=== PATIENT | female | born 1965 | race Caucasian/White ===

== ENCOUNTER 2020-09-26 09:45 | Outpatient (RCR) | payer OTHER, SELFPAY ==
[2020-08-28 13:12] VITALS: BMI 22.3
--- NOTE | 2020-08-28 14:10 | PC.ADMIT ---
Patient is a 53 year old female who started the PHP program today as a step-down from inpatient level of care. Patient was hospitalized d/t increased depressive symptoms and had a plan to overdose on her prescription [place]. Patient reports stressors including relationship issues with boyfriend who she lives with. Reports she gave up her apartment and is unsure if she could afford a place of her own if needed. Patient also lost her therapist. Yanely is here for more support and found the program helpful for continued stabilization. Patient is alert and oriented x4 . Somewhat talkative. Reports erratic sleep sleeping anywhere from 2-8-12 hrs a night. Uses and additional Klonopin tab about 2 x a month to help with sleep. Stated her provider is aware. Reports a decrease in appetite with a 3 lb weight loss recently. Denied SI or thoughts to harm herself. Gave verbal permission to email her a copy of her safety plan. Patient does have the crisis number. Stated if she felt unsafe she can call her ex-boyfriend and best friend as they know her well and are supportive.
--- NOTE | 2020-08-28 14:29 | PC.NURSE ---
I spoke with the client about finding an individual therapist. She states that her psychiatrist may have one in mind. I told her that she could also check on psycology today.
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
--- NOTE | 2020-08-30 15:26 | PC.NURSE ---
Client called out with a toothache and is planning to go to the dentist today.
--- NOTE | 2020-08-31 08:37 | PC.NURSE ---
case opened in treatment team
--- NOTE | 2020-09-04 15:37 | PC.NURSE ---
I attempted to call client to check in and to review treatment.She di not answer her phone and her mailbox is full.
--- NOTE | 2020-09-06 15:50 | PM.EVENT ---
Event Note Date of Service: 09/06/20 Event Note: Scheduled call to review meds with pt today at 12pm. Call to pt. Voice mail is full-unable to leave a message, .
--- NOTE | 2020-09-11 11:36 | PC.NURSE ---
Per clinician report, pt reported in first group being upset regarding the 9 am meeting and the repetition of the announcements. Attempt to call pt to discuss her concerns. LM for pt to call back.
--- NOTE | 2020-09-11 12:23 | PC.NURSE ---
Pt returned phone call 30 minutes later. She reported her frustration with the expectation that all patients are present at 0930 for the first psychotherapy group. She also reported the response this engineering technical writer gave her this morning was abrupt and short . This engineering technical writer apologized for the unintentional short response to her during the 0900 meeting but unfortunately, attendance in the 0930 psychotherapy group has always been an expectation. Pt returned to group.
--- NOTE | 2020-09-11 13:41 | PC.NURSE ---
Pt was not in the third group. She was present at first (as the group got started), and said she was leaving to take some space after a phone call from staff. She did not return to the third group.
--- NOTE | 2020-09-11 13:58 | PC.NURSE ---
TW reached out to pt after it was reported that pt did not attend the last 2 groups of the day. Pt reported that she was in a bad space and angry and she didn't feel that being in groups the rest of the day would be beneficial for the other patients. Pt reported that she had left a message for her clinician. Pt stated that she was in communication with her psychiatrist at this time. Pt reported that she would be in group tomorrow, 09/12/20
--- NOTE | 2020-09-11 15:28 | PM.EVENT ---
Event Note Date of Service: 09/11/20 Event Note: Pt unavailable at scheduled time for medicine review. Message left for pt.
--- NOTE | 2020-09-19 15:16 | P.PNPSP_ITS ---
Subjective Subjective Date of Service: 09/19/20 Reason For Visit: Bipolar Diagnostics Vital Signs (24Hr): Body Mass Index 22.3 Assessment & Plan Certification I certify that partial hospital treatment is medically necessary due to the sym ptoms and problems resulting from the patient's mental illness and the failure to treat the patient at the partial hospital level of care would likely result in the patient requiring inpatient psychiatric care which could not be prevented at a less intensive level of care. Greater than 50% of the session was spent on counseling and/or coordination of care Discharge Plan Discharge Attending provider: Kirk Warren Medications: No Action clonazepam 1 mg Tablet 1 mg PO BID RF: 0 omeprazole 40 mg Capsule,Delayed Release(Dr/Ec) 40 mg PO DAILY RF: 0 levothyroxine 75 mcg Tablet 75 mcg PO DAILY RF: 0 ferrous sulfate 325 mg (65 mg iron) Tablet 325 mg PO DAILY RF: 0 dextroamphetamine-amphetamine 20 mg Tablet 20 mg PO DAILY RF: 0 duloxetine 60 mg Capsule,Delayed Release(Dr/Ec) 60 mg PO DAILY RF: 0 diclofenac sodium 1 % Gel 2 g TOPICAL QID PRN (Reason: Pain) RF: 0 cholecalciferol (vitamin D3) 50 mcg (2,000 unit) Capsule 50 mcg PO DAILY RF: 0 lithium carbonate 300 mg Tablet Extended Release 600 mg PO BEDTIME RF: 0
--- NOTE | 2020-09-20 13:19 | HO.PHPPROGNO ---
Subjective Subjective Date of Service: 09/19/20 Reason For Visit: Bipolar Interim History: Susana reports insomnia for the past 2 nights. Last night she slept for 1-2 hours. Sleep deprivation precipitates headache-pt cannot use NSAIDS as she has a hx of aneurysm rupture at age 32. She uses fluids, electrolyte rich fluids and extra self-care. When sleep deprived, pt also experiences an increase in anxiety. She has discussed current sx with her prescriber via email and was referred to our service. By history, what has helped with insomnia was a temporary increase in Klonopin to 1 tab a.m. 2 tabs hs. Other agents have not been helpful, including Trazodone and Seroquel as the after effects are too difficult to manage. Medication Compliance: Yes Side effects from medications: No Attending Groups: Yes Review of Systems Constitutional: Reports headache(s) Reports headache(s) Reports headache(s) Psychiatric: Reports abnormal sleep pattern and Reports anxiety Mental Status Exam Mental Status Exam Patient Orientation: Person, Place, Time and Situation Level of Consciousness: Awake, Appropriate and Alert Patient Behavior: Appropriate Mood Description: Withdrawn, Depressed and Flat Affect Description: Withdrawn and Flat Patient Cognition Impaired: No Ability to Follow Directions: Excellent Speech Pattern: Clear, Appropriate and Spontaneous Speech Memory Description: Intact Hallucinations: None Delusions: Not Present Thought Process: Distracted (due to exhaustion) Thought Content: positive for Intact Depressive Symptoms: Insomnia, Diff. Making Decisions (due to sleep deprivation) and Difficulty Sleeping Judgement: Good Diagnostics Vital Signs (24Hr): Body Mass Index 22.3 Assessment & Plan Assessment & Plan (1) Insomnia: Status: Acute Code(s): G47.00 - Insomnia, unspecified Assessment and Plan: Temporary increase of Klonopin to tid to aid in insomnia mgt. Certification I certify that partial hospital treatment is medically necessary due to the symptoms and problems resulting from the patient's mental illness and the failure to treat the patient at the partial hospital level of care would likely result in the patient requiring inpatient psychiatric care which could not be prevented at a less intensive level of care. Greater than 50% of the session was spent on counseling and/or coordination of care Discharge Plan Discharge Attending provider: Kirk Warren Medications: Discontinued dextroamphetamine-amphetamine 20 mg Tablet 20 mg PO DAILY RF: 0 No Action clonazepam 1 mg Tablet 1 mg PO BID RF: 0 omeprazole 40 mg Capsule,Delayed Release(Dr/Ec) 40 mg PO DAILY RF: 0 levothyroxine 75 mcg Tablet 75 mcg PO DAILY RF: 0 ferrous sulfate 325 mg (65 mg iron) Tablet 325 mg PO DAILY RF: 0 duloxetine 60 mg Capsule,Delayed Release(Dr/Ec) 60 mg PO DAILY RF: 0 diclofenac sodium 1 % Gel 2 g TOPICAL QID PRN (Reason: Pain) RF: 0 cholecalciferol (vitamin D3) 50 mcg (2,000 unit) Capsule 50 mcg PO DAILY RF: 0 lithium carbonate 300 mg Tablet Extended Release 600 mg PO BEDTIME RF: 0
--- NOTE | 2020-09-26 12:34 | P.PNPSP_ITS ---
Subjective Subjective Date of Service: 09/26/20 Reason For Visit: Bipolar Interim History: Susana plans discharge today. She reports insomnia is resolved with recent Klonopin increase to tid. She plans to meet with Dr. Hwang in October and will need refills of Adderall. In hospital, she tapered per hospital policy and has been retitrating, currently at 15 mg daily. Discussed increasing to 15 mg bid which we will trial. By history dosage is 30 mg a.m. 20 mg p.m. which both last 5-6 hours. Pt was asked to contact technical publications writer with problems/SE/medication issues if experienced prior to her med appt. Reviewed her experiences with Adderall XR and adverse effects of longer acting med on sleep. She also finds IR augments her antidepressant for improved efficacy. Pt has signed up for video group sessions with Dr. Herson Mike which will begin weekly. She is excited to begin these group meetings. Reports she has found PHP to be helpful and feels a sense of security that the program is available for her to attend. Medication Compliance: Yes Side effects from medications: No Attending Groups: Yes Review of Systems Psychiatric: Reports no additional psychiatric complaints and Reports as per [facility] Mental Status Exam Mental Status Exam Patient Orientation: Person, Place and Time Level of Consciousness: Awake, Appropriate and Alert Patient Behavior: Appropriate Mood Description: Calm and Appropriate Affect Description: Calm and Appropriate Patient Cognition Impaired: No Ability to Follow Directions: Excellent Speech Pattern: Clear, Appropriate, Spontaneous Speech and Coherent Memory Description: Intact Hallucinations: None Delusions: Not Present Thought Process: Intact Thought Content: positive for Intact Judgement: Good Diagnostics Vital Signs (24Hr): Body Mass Index 22.3 Assessment & Plan Assessment & Plan (1) Bipolar disorder: Status: Acute Code(s): F31.9 - Bipolar disorder, unspecified Assessment and Plan: Continue Klonopin at 1 mg tid-pt reports refills are not needed today Continue [place], Cymbalta Pt to call with questions, SE, medication issues. Reports labs are on a regular schedule. (2) ADHD: Status: Acute Code(s): F90.9 - Attention-deficit hyperactivity disorder, unspecified type Assessment and Plan: Titrate Adderall to 15 mg bid Certification I certify that partial hospital treatment is medically necessary due to the symptoms and problems resulting from the patient's mental illness and the failure to treat the patient at the partial hospital level of care would likely result in the patient requiring inpatient psychiatric care which could not be prevented at a less intensive level of care. Greater than 50% of the session was spent on counseling and/or coordination of care Discharge Plan Discharge Attending provider: Kirk Warren Medications: New dextroamphetamine-amphetamine [Adderall] 15 mg tablet 15 mg PO BID Qty: 60 RF: 0 Discontinued dextroamphetamine-amphetamine 20 mg Tablet 20 mg PO DAILY RF: 0 No Action clonazepam 1 mg Tablet 1 mg PO BID RF: 0 omeprazole 40 mg Capsule,Delayed Release(Dr/Ec) 40 mg PO DAILY RF: 0 levothyroxine 75 mcg Tablet 75 mcg PO DAILY RF: 0 ferrous sulfate 325 mg (65 mg iron) Tablet 325 mg PO DAILY RF: 0 duloxetine 60 mg Capsule,Delayed Release(Dr/Ec) 60 mg PO DAILY RF: 0 diclofenac sodium 1 % Gel 2 g TOPICAL QID PRN (Reason: Pain) RF: 0 cholecalciferol (vitamin D3) 50 mcg (2,000 unit) Capsule 50 mcg PO DAILY RF: 0 lithium carbonate 300 mg Tablet Extended Release 600 mg PO BEDTIME RF: 0 Telehealth Telehealth Location of provider rendering services: practice address Location of patient: address on file Patient Identification confirmed using: Name, : Yes Telehealth method: voice only Patient verbally consented to treatment: Yes Patient verbally consented to billing insurance company: Yes Patient informed of any privacy concerns related to visit: Yes Time spent with patient (mins): 30
== END 2020-09-26 23:55 | disposition home or self-care (01) ==
LOC: HO.PHPA 09:45
PROVIDERS: Visit Provider Psychiatry & Neurology Psychiatry
DX: F31.9 Bipolar disorder, unspecified (principal); F90.9 Attention-deficit hyperactivity disorder, unspecified type; G47.00 Insomnia, unspecified; F43.10 Post-traumatic stress disorder, unspecified; Z79.899 Other long term (current) drug therapy
CPT/HCPCS: 90792; 90853; 99213

== ENCOUNTER → 2020-10-24 08:30 | Outpatient (BNVA) | payer OTHER, SELFPAY | PROVIDERS: PCP Family Medicine; Visit Provider Anesthesiology | DX: M53.3 Sacrococcygeal disorders, not elsewhere classified (principal); M46.1 Sacroiliitis, not elsewhere classified; M51.36 Other intervertebral disc degeneration, lumbar region; M47.816 Spondylosis without myelopathy or radiculopathy, lumbar region; G89.4 Chronic pain syndrome | CPT/HCPCS: 99202 ==

== ENCOUNTER 2020-11-20 07:59 | Outpatient (REF) | payer OTHER, SELFPAY ==
--- NOTE | 2020-11-20 08:05 | FL_ITS ---
EXAMINATION: XR FLUOROSCOPY WITH IMAGES CLINICAL INFORMATION: Sacroiliitis COMPARISON: None. TECHNIQUE: Fluoroscopy performed by Chelsea Colbert NP. Fluoroscopy time: 0.2 minutes Cumulative dose 5.7 mgy Images: 1 FINDINGS: Single image demonstrates needle placement and injection of contrast at the inferior left sacroiliac joint. FL/FL guidance in treatment room IMPRESSION: Fluoroscopy guidance for sacroiliac joint injection.
== END 2020-11-20 08:00 | disposition home or self-care (01) ==
LOC: HO.RADIR 07:59
PROVIDERS: Visit Provider Anesthesiology
DX: M46.1 Sacroiliitis, not elsewhere classified (principal); M53.3 Sacrococcygeal disorders, not elsewhere classified; M51.36 Other intervertebral disc degeneration, lumbar region; M47.816 Spondylosis without myelopathy or radiculopathy, lumbar region; G89.4 Chronic pain syndrome; F17.210 Nicotine dependence, cigarettes, uncomplicated; Z88.5 Allergy status to narcotic agent; Z88.2 Allergy status to sulfonamides; Z88.8 Allergy status to other drugs, medicaments and biological substances
CPT/HCPCS: 27096; J3300; Q9967

== ENCOUNTER → 2020-12-10 14:35 | Outpatient (BNVA) | payer OTHER, MEDICARE, SELFPAY | PROVIDERS: PCP Family Medicine; Visit Provider Anesthesiology | DX: M46.1 Sacroiliitis, not elsewhere classified (principal); M53.3 Sacrococcygeal disorders, not elsewhere classified; M51.36 Other intervertebral disc degeneration, lumbar region; M47.816 Spondylosis without myelopathy or radiculopathy, lumbar region; G89.4 Chronic pain syndrome | CPT/HCPCS: 99212 ==

== ENCOUNTER → 2020-12-31 10:48 | Outpatient (BNVA) | payer OTHER, MEDICARE, SELFPAY | PROVIDERS: PCP Family Medicine; Visit Provider Anesthesiology | DX: M47.816 Spondylosis without myelopathy or radiculopathy, lumbar region (principal); M46.1 Sacroiliitis, not elsewhere classified; M51.36 Other intervertebral disc degeneration, lumbar region; M53.3 Sacrococcygeal disorders, not elsewhere classified; G89.4 Chronic pain syndrome; Z79.899 Other long term (current) drug therapy | CPT/HCPCS: Q3014 ==

== ENCOUNTER 2021-01-15 07:13 | Outpatient (REF) | payer OTHER, MEDICARE, SELFPAY ==
--- NOTE | ~2021-01-15 | FL_ITS ---
EXAMINATION: XR FLUOROSCOPY WITH IMAGES CLINICAL INFORMATION: Sacroiliitis. COMPARISON: None. TECHNIQUE: Fluoroscopy performed by Chelsea Colbert. Fluoroscopy time: 0.1 minutes DAP: 0.391 Gycm2 Images: 1 FINDINGS: There is a single image with needle in the left SI joint and contrast opacifying the inferior joint space. FL/FL guidance in treatment room IMPRESSION: Fluoroscopy was provided for guidance during left SI joint injection to Chelsea Colbert.
== END 2021-01-15 07:14 | disposition home or self-care (01) ==
LOC: HO.RADIR 07:13
PROVIDERS: Visit Provider Anesthesiology
DX: M46.1 Sacroiliitis, not elsewhere classified (principal); M53.3 Sacrococcygeal disorders, not elsewhere classified; M51.36 Other intervertebral disc degeneration, lumbar region; M47.816 Spondylosis without myelopathy or radiculopathy, lumbar region; G89.4 Chronic pain syndrome
CPT/HCPCS: 27096; J3300; Q9967

== ENCOUNTER → 2021-02-27 15:38 | Outpatient (BNVA) | payer OTHER, MEDICARE, SELFPAY | PROVIDERS: PCP Family Medicine; Visit Provider Anesthesiology | DX: M53.3 Sacrococcygeal disorders, not elsewhere classified (principal); M46.1 Sacroiliitis, not elsewhere classified; M51.36 Other intervertebral disc degeneration, lumbar region; M47.816 Spondylosis without myelopathy or radiculopathy, lumbar region; G89.4 Chronic pain syndrome | CPT/HCPCS: Q3014 ==

== ENCOUNTER 2021-04-05 09:05 | Day surgery (SDC) | payer OTHER, SELFPAY ==
[2021-04-01 11:11] VITALS: BMI 23.2
[2021-04-01 11:12] VITALS: BMI 23.2
--- NOTE | 2021-04-03 10:36 | P.CONAN_ITS ---
Documented by User: Charity Waleska 04/03/21 10:38 HPI - Anesthesia Eval Consult details Narrative: 55yo F for Right S.I. Joint Fusion PMFSH Active Problems Active Problems: All Active Problems (Updated 01/15/21 @ 16:24 by Carlos Boo MD) Sacroiliac joint dysfunction of left side (Acute) Chronic pain syndrome (Acute) Spondylosis without myelopathy or radiculopathy, lumbar region (Acute) Disc degeneration, lumbar (Acute) Sacroiliitis, not elsewhere classified (Acute) Sacroiliac joint dysfunction of right side (Acute) ADHD (Acute) Bipolar disorder (Acute) Insomnia (Acute) GERD (gastroesophageal reflux disease) (Acute) Past Medical History Medical History ADHD Anemia Bipolar disorder Chronic back pain Chronic pain syndrome Dermoid cyst Disc degeneration, lumbar GERD (gastroesophageal reflux disease) Hx of endometriosis Hypothyroidism Insomnia Osteoarthritis PUD (peptic ulcer disease) Sacroiliac joint dysfunction of left side Sacroiliac joint dysfunction of right side Sacroiliitis, not elsewhere classified Spondylosis without myelopathy or radiculopathy, lumbar region Subarachnoid bleed Surgical History Surgical History History of surgery Hx of section Social History Social History Household Members: Significant Other Patient Tobacco Use Status: Current everyday Tobacco user Tobacco use type: Cigarette Cigarette Packs Per Day: 1 Cigarettes Per Day: 20.0 Years Smoked: 39 Are you DNR?: No Advance Directives Information Provided: No Meds Allergies Allergy/AdvReac Type Severity Reaction Status Date / Time meperidine [From Demerol] Allergy Intermediate Itching Verified 04/05/21 09:43 NSAIDS (Non-Steroidal Allergy Intermediate GI UPSET/ Verified 04/05/21 09:43 Anti-Inflamma COFFEE [NSAIDS (NON-STEROIDAL GROUND ANTI-INFLAMMA] EMESIS Sulfa (Sulfonamide Allergy Intermediate SWELLING Verified 04/05/21 09:43 Antibiotics) OF FACE [SULFA (SULFONAMIDE HANDS, AND ANTIBIOTICS)] FEET Home Medications Medication Instructions Recorded Confirmed Last Taken Type cholecalciferol (vitamin D3) 50 mcg PO DAILY 08/28/20 04/01/21 08/28/20 10:30 History clonazepam 1 mg PO BID 08/28/20 04/01/21 08/28/20 10:30 History diclofenac sodium 2 g TOPICAL QID PRN 08/28/20 04/01/21 Unknown History duloxetine 60 mg PO DAILY 08/28/20 04/01/21 04/05/21 06:30 History ferrous sulfate 325 mg PO DAILY 08/28/20 04/01/21 08/27/20 22:30 History levothyroxine 75 mcg PO DAILY 08/28/20 04/01/21 04/05/21 06:30 History lithium carbonate 600 mg PO BEDTIME 08/28/20 04/01/21 Unknown History omeprazole 40 mg PO DAILY 08/28/20 04/01/21 08/28/20 10:30 History Exam Exam Date and Time: April 03, 2021 1036 Height,Weight and Vital Signs: Height 5 ft 3 in Weight 59.421 kg Assessment and Plan Assessment Anesthesia Assessment: Chart Reviewed Documented by User: Rita Ross 04/05/21 11:04 [facility] Past Medical History Medical History ADHD Anemia Bipolar disorder Chronic back pain Chronic pain syndrome Dermoid cyst Disc degeneration, lumbar GERD (gastroesophageal reflux disease) Hx of endometriosis Hypothyroidism Insomnia Osteoarthritis PUD (peptic ulcer disease) Sacroiliac joint dysfunction of left side Sacroiliac joint dysfunction of right side Sacroiliitis, not elsewhere classified Spondylosis without myelopathy or radiculopathy, lumbar region Subarachnoid bleed Surgical History Surgical History History of surgery Hx of section Social History Social History Household Members: Significant Other Patient Tobacco Use Status: Current everyday Tobacco user Tobacco use type: Cigarette Cigarette Packs Per Day: 1 Cigarettes Per Day: 20.0 Years Smoked: 39 Are you DNR?: No Advance Directives Information Provided: No Meds Allergies Allergy/AdvReac Type Severity Reaction Status Date / Time meperidine [From Demerol] Allergy Intermediate Itching Verified 04/05/21 09:43 NSAIDS (Non-Steroidal Allergy Intermediate GI UPSET/ Verified 04/05/21 09:43 Anti-Inflamma COFFEE [NSAIDS (NON-STEROIDAL GROUND ANTI-INFLAMMA] EMESIS Sulfa (Sulfonamide Allergy Intermediate SWELLING Verified 04/05/21 09:43 Antibiotics) OF FACE [SULFA (SULFONAMIDE HANDS, AND ANTIBIOTICS)] FEET Home Medications Medication Instructions Recorded Confirmed Last Taken Type cholecalciferol (vitamin D3) 50 mcg PO DAILY 08/28/20 04/01/21 08/28/20 10:30 History clonazepam 1 mg PO BID 08/28/20 04/01/21 08/28/20 10:30 History diclofenac sodium 2 g TOPICAL QID PRN 08/28/20 04/01/21 Unknown History duloxetine 60 mg PO DAILY 08/28/20 04/01/21 04/05/21 06:30 History ferrous sulfate 325 mg PO DAILY 08/28/20 04/01/21 08/27/20 22:30 History levothyroxine 75 mcg PO DAILY 08/28/20 04/01/21 04/05/21 06:30 History lithium carbonate 600 mg PO BEDTIME 08/28/20 04/01/21 Unknown History omeprazole 40 mg PO DAILY 08/28/20 04/01/21 08/28/20 10:30 History Exam Airway Mallampati Class: I TM Dist: >3cm
[2021-04-05] VITALS (8 sets, daily range): BP systolic 107–119; BP diastolic 62–82; PULSE 77–83; RESP 16–18; TEMP 36.1–37; O2SAT 97–99
--- NOTE | ~2021-04-05 | FL_ITS ---
EXAMINATION: XR FLUOROSCOPY WITH IMAGES CLINICAL INFORMATION: Right SI joint pain. SI joint fusion. COMPARISON: None. TECHNIQUE: Fluoroscopy performed by Dr. Boo. Fluoroscopy time: 1.2 minutes DAP: 12.5 mGycm2 Images: 5 FINDINGS: There are instruments visualized overlying the right SI joint for fusion. No bony abnormality seen on the visualized images. FL/FL guidance in OR IMPRESSION: Fluoroscopy was provided to Dr. Boo for right SI joint fusion.
[2021-04-05 09:14] LABS: MANUAL DIFF FLAG NO
[2021-04-05 09:19] LABS: Basophils Absolute Auto 0.1 X10*3/uL (0.0-0.2); Basophils Percent Auto 0.7 % (0-2); Eosinophils Absolute Auto 0.2 X10*3/uL (0.0-0.4); Eosinophils Percent Auto 2.6 % (0-4); Hematocrit 38.5 % (37-47); Hemoglobin 13.2 g/dl (12.0-16.0); Imm Gran Abs Auto 0.02 X10*3/uL (0.00-0.03); Imm Gran Pct Auto 0.2 % (0.0-0.4); Lymphocytes Absolute Auto 1.8 X10*3/uL (1.2-4.9); Lymphocytes Percent Auto 21.7 % (20-40); Mean Corpuscular HGB Conc 34.3 g/dl (31.0-35.0); Mean Corpuscular Hemoglobin 33.4 pg (27.0-33.0); Mean Corpuscular Volume 97.5 fL (80-98); Mean Platelet Volume 10.1 fL (9.4-12.3); Monocytes Absolute Auto 0.5 X10*3/uL (0.1-1.2); Monocytes Percent Auto 5.5 % (2-11); Neutrophils Absolute Auto 5.7 X10*3/uL (2.0-8.3); Neutrophils Percent Auto 69.3 % (45-73); Platelet Count 280 X10*3/uL (160-400); Red Blood Count 3.95 X10*6/uL (4.20-5.50); Red Cell Distribution Width 12.7 % (11.0-16.0); White Blood Count 8.2 X10*3/uL (4.8-10.8)
[2021-04-05 09:31] LABS: Lithium 0.67 mmol/L (0.60-1.20)
[2021-04-05 09:50] LABS: Alanine Aminotransferase 14 U/L (0-31); Albumin Level 4.2 g/dL (3.5-5.0); Alkaline Phosphatase 50 U/L (39-117); Anion Gap 12 (12-20); Aspartate Amino Transferase 16 U/L (5-31); Bilirubin Total 0.2 mg/dL (0.0-1.0); Blood Urea Nitrogen 12 mg/dL (9-16); Calcium 9.1 mg/dL (8.4-10.2); Carbon Dioxide 25 mmol/L (22-29); Chloride 108 mmol/L (96-108); Creatinine Clr Calc Pharmacy 67.3; Estimated Glomerular Filt Rate > 60; Glucose Random 104 mg/dL (60-115); Potassium 4.9 mmol/L (3.3-5.1); Sodium 140 mmol/L (135-145); Total Protein 6.9 g/dL (6.5-8.0)
[2021-04-05] MEDS: Lactated Ringers 1,000 ML 100 ML IVCONT (09:50)
[2021-04-05 09:59] LABS: TSH reflex Free T4 2.58 uIU/mL (0.32-4.0)
[2021-04-05 10:11] LABS: Vitamin B12 < 146 pg/mL (200-900)
--- NOTE | 2021-04-05 11:06 | MHC.SHP ---
Pre-Procedural Eval Section A The patient is an INPATIENT: No Changes since office visit: Yes Patient answered all questions The History & Physical has been completed within 30 days and I have reviewed it.: No Section B Chief Complaint: Sacroiliac joint dysfunction, sacroiliitis Details of Present Illness: The same Relevant Family History (Specify if Yes): No Relevant Social History: None Present Medications: see Short Stay Collaborative assessment Medical History: No relevant PMH History of Previous Operations: No relevant previous surgery Allergies: Allergies Allergy/AdvReac Type Severity Reaction Status Date / Time meperidine [From Demerol] Allergy Intermediate Itching Verified 04/05/21 09:43 NSAIDS (Non-Steroidal Allergy Intermediate GI UPSET/ Verified 04/05/21 09:43 Anti-Inflamma COFFEE [NSAIDS (NON-STEROIDAL GROUND ANTI-INFLAMMA] EMESIS Sulfa (Sulfonamide Allergy Intermediate SWELLING Verified 04/05/21 09:43 Antibiotics) OF FACE [SULFA (SULFONAMIDE HANDS, AND ANTIBIOTICS)] FEET Review of Systems Sugical H&P ROS: Negative: Constitution, Cardiovascular, Respiratory, Neurological, Psychiatric, Hem-Onc, Allergic/Immunologic, Gastrointestinal, Genitourinary, Musculoskeletal, Integumentary, Endocrine and Eyes/Ears/Nose/Throat Exam Surgical H&P Exam: Normal: HEENT, Normal: Heart, Normal: Lungs, Normal: Extremities, Normal: Abdomen, Normal: Skin and Normal: Neurological Plan Diagnosis/Plan: Unchanged I have reviewed the history and physical and performed a pertinent physical examination on my patient. No changes have occurred unless specified.
--- NOTE | 2021-04-05 13:39 | P.BOP_ITS ---
Brief Operative Note Date of Service: 04/05/21 Pre-op diagnosis: Sacroiliitis Post-op diagnosis: same Procedure: Right sacroiliac joint stability is a riley. Implants: Pain tech allograft implant. Surgeon: Carlos Boo MD Anesthesia: GETA Was an Engine Monitor used for this Procedure?: No Estimated blood loss (mL): 50 Pathology: none sent Condition: stable Disposition: PACU
--- NOTE | 2021-04-05 13:43 | W.PM.OPN ---
Operative Note Operative Note Date of Service: 04/05/21 Narrative: Sacroiliac joint stabilisation procedure. posterior sacroiliac joint fusion using LINQ SI joint stabilization system with C-arm fluoroscopy for guidance. Susana is very pleasant 55 years old female who is suffering from right sacroiliac joint insufficiency and sacroiliitis on the right. She failed conservative management of sacroiliitis. She came today to receive the procedures as above. The risks and benefits including bleeding, infection, peripheral nerve damage, failure to reduce the pain were explained to the patient. The patient came to the operating room, she was positioned on the stretcher supine [place] [employer] monitors were applied and patient was administered with general endotracheal anesthesia. After that the patient was transferred on operating table and positioned prone with all pressure points protected. The patient was administered 2 gramms cefasolin IV 15 minutes before the start of the procedure. Time-out was performed delineating correct site, side, and nature of the procedure, name and date of of the patient, risk of fire, need for DVT prophylaxis, need for antibiotics. The patient was transferred on radiolucent table. All pressure points were protected again. Lower back and bilateral buttocks were prepped with ChloraPrep and draped with full body drape. 3. 5 cm posterior midline incision over the projection of the right S1 foraminal was performed. Soft tissue dissection done to sacroiliac joint and thorough blind dissection was made in the direction of the sacroiliac joint. K-wire pin was inserted into the sacroiliac joint and guiding instrument was inserted into the joint and advanced into the joint on the intermittent anterior posterior and lateral views. The advancement was originally made slightly more medial to the sacroiliac joint after that the instrument was withdrawn, the K-wire pin was repositioned and reinserted into the joint and correct position of guiding device in the joint was achieved. After that pain was removed and rasping device was inserted to broach and rasp sacroiliac joint. Once joint was prepared and inserted the structural allograft implant into the joint and packed ortho biologics in and around the implant to provide better opportunity for bones fusion. Surgery was concluded by performing standard suture closing technique. The position of the allograft was confirmed radiographically. The wound was irrigated hemostasis was achieved wound was closed in 2 layers. Sterile dressing was applied. The patient tolerated procedure well, she was awaken and taken outside of the operating room to PACU where she recovered uneventfully. She went home without immediate complications. She will be wearing an SI joint fixation belt for the 6 weeks after the procedure.
[2021-04-05] MEDS: fentaNYL citrate/PF 100 MCG/2 ML VIAL 50 MCG IVPUSH (13:57)
[2021-04-05] MEDS: oxyCODONE HCl Immed Release 5 MG TABLET PO (14:02)
== END 2021-04-05 14:58 | disposition home or self-care (01) ==
PROVIDERS: Absent Provider Psychiatry & Neurology Psychiatry; PCP Family Medicine; Visit Provider Anesthesiology
PROC: (CPT 27279; principal; 2021-04-05 11:00)
DX: M53.3 Sacrococcygeal disorders, not elsewhere classified (principal); M46.1 Sacroiliitis, not elsewhere classified; G89.4 Chronic pain syndrome; M51.36 Other intervertebral disc degeneration, lumbar region; M47.816 Spondylosis without myelopathy or radiculopathy, lumbar region; Z88.8 Allergy status to other drugs, medicaments and biological substances; Z88.2 Allergy status to sulfonamides
CPT/HCPCS: 27279; 36415; 80053; 80178; 82607; 84443; 85025; C1713; J0690; J1100; J2250; J2405; J3010; J3370

== ENCOUNTER → 2021-04-10 11:30 | Outpatient (BNVA) | payer OTHER, SELFPAY | PROVIDERS: PCP Family Medicine; Visit Provider Anesthesiology | DX: M53.3 Sacrococcygeal disorders, not elsewhere classified (principal); M46.1 Sacroiliitis, not elsewhere classified; M51.36 Other intervertebral disc degeneration, lumbar region; M47.816 Spondylosis without myelopathy or radiculopathy, lumbar region; G89.4 Chronic pain syndrome; E03.9 Hypothyroidism, unspecified; F31.9 Bipolar disorder, unspecified; F90.9 Attention-deficit hyperactivity disorder, unspecified type; F17.210 Nicotine dependence, cigarettes, uncomplicated; Z88.6 Allergy status to analgesic agent; Z88.2 Allergy status to sulfonamides | CPT/HCPCS: 99212 ==

== ENCOUNTER → 2021-04-23 10:57 | Outpatient (BNVA) | payer OTHER, SELFPAY | PROVIDERS: PCP Family Medicine; Visit Provider Anesthesiology ==

== ENCOUNTER → 2021-05-20 13:23 | Outpatient (BNVA) | payer OTHER, SELFPAY | PROVIDERS: PCP Family Medicine; Visit Provider Anesthesiology | DX: M47.816 Spondylosis without myelopathy or radiculopathy, lumbar region (principal); M46.1 Sacroiliitis, not elsewhere classified; M51.36 Other intervertebral disc degeneration, lumbar region; M53.3 Sacrococcygeal disorders, not elsewhere classified; G89.4 Chronic pain syndrome; F17.210 Nicotine dependence, cigarettes, uncomplicated; Z98.1 Arthrodesis status | CPT/HCPCS: 99212 ==

== ENCOUNTER → 2021-07-11 12:10 | Outpatient (BNVA) | payer OTHER, SELFPAY | PROVIDERS: PCP Family Medicine; Visit Provider Anesthesiology | DX: M53.3 Sacrococcygeal disorders, not elsewhere classified (principal); M46.1 Sacroiliitis, not elsewhere classified; M51.36 Other intervertebral disc degeneration, lumbar region; M47.816 Spondylosis without myelopathy or radiculopathy, lumbar region; M76.31 Iliotibial band syndrome, right leg; G89.4 Chronic pain syndrome | CPT/HCPCS: Q3014 ==

== ENCOUNTER → 2021-07-15 14:20 | Outpatient (BNVA) | payer OTHER, SELFPAY | PROVIDERS: PCP Family Medicine; Visit Provider Anesthesiology | DX: M53.3 Sacrococcygeal disorders, not elsewhere classified (principal); M46.1 Sacroiliitis, not elsewhere classified; M51.36 Other intervertebral disc degeneration, lumbar region; M47.816 Spondylosis without myelopathy or radiculopathy, lumbar region; M76.31 Iliotibial band syndrome, right leg; G89.4 Chronic pain syndrome | CPT/HCPCS: 99212 ==

== ENCOUNTER 2021-07-18 12:26 | Day surgery (SDC) | payer OTHER, SELFPAY ==
[2021-07-15 09:36] VITALS: BMI 23.2
--- NOTE | 2021-07-17 11:00 | HO.ANESPROP2 ---
Documented by User: Cahrity Galeano NP 07/17/21 11:02 HPI - Anesthesia Eval Consult details Narrative: 55yo F for Left S.I. Joint Fusion s/p right side 03/2021 with MAC PMFSH Active Problems Active Problems: All Active Problems (Updated 07/11/21 @ 19:59 by Carlos Boo MD) Iliotibial band syndrome affecting right lower leg (Acute) Sacroiliac joint dysfunction of left side (Acute) Chronic pain syndrome (Acute) Spondylosis without myelopathy or radiculopathy, lumbar region (Acute) Disc degeneration, lumbar (Acute) Sacroiliitis, not elsewhere classified (Acute) Sacroiliac joint dysfunction of right side (Acute) ADHD (Acute) Bipolar disorder (Acute) Insomnia (Acute) GERD (gastroesophageal reflux disease) (Acute) Past Medical History Medical History ADHD Anemia Bipolar disorder Chronic back pain Chronic pain syndrome Dermoid cyst Disc degeneration, lumbar GERD (gastroesophageal reflux disease) Hx of endometriosis Hypothyroidism Iliotibial band syndrome affecting right lower leg Insomnia Osteoarthritis PUD (peptic ulcer disease) Sacroiliac joint dysfunction of left side Sacroiliac joint dysfunction of right side Sacroiliitis, not elsewhere classified Spondylosis without myelopathy or radiculopathy, lumbar region Subarachnoid bleed Surgical History Surgical History History of surgery History of surgery Hx of section Social History Social History Household Members: Significant Other Patient Tobacco Use Status: Current everyday Tobacco user Tobacco use type: Cigarette Cigarette Packs Per Day: 1 Cigarettes Per Day: 10 Years Smoked: 40 Smoked in Last 30 Days: Yes Use of substances other than those prescribed or required for medical reasons: No Are you DNR?: No Advance Directives: No Advance Directives Information Provided: Yes Meds Allergies Allergy/AdvReac Type Severity Reaction Status Date / Time meperidine [From Demerol] Allergy Intermediate Itching Verified 07/18/21 12:57 NSAIDS (Non-Steroidal Allergy Intermediate GI UPSET/ Verified 07/18/21 12:57 Anti-Inflamma COFFEE [NSAIDS (NON-STEROIDAL GROUND ANTI-INFLAMMA] EMESIS Sulfa (Sulfonamide Allergy Intermediate SWELLING Verified 07/18/21 12:57 Antibiotics) OF FACE [SULFA (SULFONAMIDE HANDS, AND ANTIBIOTICS)] FEET Home Medications Medication Instructions Recorded Confirmed Last Taken Type cholecalciferol (vitamin D3) 50 50 mcg PO DAILY 08/28/20 07/15/21 08/28/20 10:30 History mcg (2,000 unit) capsule clonazepam 1 mg tablet 1 mg PO BID 08/28/20 07/15/21 08/28/20 10:30 History diclofenac sodium 1 % topical gel 2 g TOPICAL QID PRN 08/28/20 07/15/21 Unknown History duloxetine 60 mg capsule,delayed 60 mg PO DAILY 08/28/20 07/15/21 04/05/21 06:30 History release ferrous sulfate 325 mg (65 mg 325 mg PO DAILY 08/28/20 07/18/21 07/11/21 History iron) tablet levothyroxine 75 mcg tablet 75 mcg PO DAILY 08/28/20 07/15/21 04/05/21 06:30 History lithium carbonate 300 mg 600 mg PO BEDTIME 08/28/20 07/18/21 07/16/21 History tablet,extended release omeprazole 40 mg capsule,delayed 40 mg PO DAILY 08/28/20 07/15/21 08/28/20 10:30 History release Exam Exam Date and Time: July 17, 2021 1100 Height,Weight and Vital Signs: Height 5 ft 3 in Weight 59.421 kg Pertinent Lab Results Pertinent Lab Results: Laboratory Tests 04/05/21 04/05/21 08:51 08:51 WBC 8.2 Hgb 13.2 Hct 38.5 Plt Count 280 Sodium 140 Potassium 4.9 Chloride 108 Carbon Dioxide 25 BUN 12 Creatinine 0.79 Assessment and Plan Assessment Anesthesia Assessment: Chart Reviewed Documented by User: Sabrina Ames MD 07/18/21 14:36 [facility] Past Medical History Medical History ADHD Anemia Bipolar disorder Chronic back pain Chronic pain syndrome Dermoid cyst Disc degeneration, lumbar GERD (gastroesophageal reflux disease) Hx of endometriosis Hypothyroidism Iliotibial band syndrome affecting right lower leg Insomnia Osteoarthritis PUD (peptic ulcer disease) Sacroiliac joint dysfunction of left side Sacroiliac joint dysfunction of right side Sacroiliitis, not elsewhere classified Spondylosis without myelopathy or radiculopathy, lumbar region Subarachnoid bleed Family History Family history of problems with anesthesia: No Surgical History Surgical History History of surgery History of surgery Hx of section History of Problems with Anesthesia: No Social History Social History Household Members: Significant Other Patient Tobacco Use Status: Current everyday Tobacco user Tobacco use type: Cigarette Cigarette Packs Per Day: 1 Cigarettes Per Day: 10 Years Smoked: 40 Smoked in Last 30 Days: Yes Use of substances other than those prescribed or required for medical reasons: No Are you DNR?: No Advance Directives: No Advance Directives Information Provided: Yes Meds Allergies Allergy/AdvReac Type Severity Reaction Status Date / Time meperidine [From Demerol] Allergy Intermediate Itching Verified 07/18/21 12:57 NSAIDS (Non-Steroidal Allergy Intermediate GI UPSET/ Verified 07/18/21 12:57 Anti-Inflamma COFFEE [NSAIDS (NON-STEROIDAL GROUND ANTI-INFLAMMA] EMESIS Sulfa (Sulfonamide Allergy Intermediate SWELLING Verified 07/18/21 12:57 Antibiotics) OF FACE [SULFA (SULFONAMIDE HANDS, AND ANTIBIOTICS)] FEET Home Medications Medication Instructions Recorded Confirmed Last Taken Type cholecalciferol (vitamin D3) 50 50 mcg PO DAILY 08/28/20 07/15/21 08/28/20 10:30 History mcg (2,000 unit) capsule clonazepam 1 mg tablet 1 mg PO BID 08/28/20 07/15/21 08/28/20 10:30 History diclofenac sodium 1 % topical gel 2 g TOPICAL QID PRN 08/28/20 07/15/21 Unknown History duloxetine 60 mg capsule,delayed 60 mg PO DAILY 08/28/20 07/15/21 04/05/21 06:30 History release ferrous sulfate 325 mg (65 mg 325 mg PO DAILY 08/28/20 07/18/2121 History iron) tablet levothyroxine 75 mcg tablet 75 mcg PO DAILY 08/28/20 07/15/21 04/05/21 06:30 History lithium carbonate 300 mg 600 mg PO BEDTIME 08/28/20 07/18/21 07/16/21 History tablet,extended release omeprazole 40 mg capsule,delayed 40 mg PO DAILY 08/28/20 07/15/21 08/28/20 10:30 History release Exam Airway Mallampati Class: II TM Dist: >3cm Neck ROM: Full Assessment and Plan Assessment Anesthesia Assessment: Anesthesia Plan Discussed Final Anesthetic Review Family History of Problems with Anesthesia: No History of Problems with Anesthesia: No NPO: Yes ASA Class: II Final Preanesthetic Review: No Changes in Pt Med Stat, Meds/Allgs Chart Reviewed, Consent Obtained/Reviewed and Anes Risks/Benef Reviewed Patient Risk: Low Procedure Risk: Low Assessment/Block/Sedation in SS: Assess/Block/Sedation-SS Anesthetic Plan Anesthetic Plan: MAC: Disposition: Standard PACU
[2021-07-18] VITALS (7 sets, daily range): BP systolic 92–105; BP diastolic 60–68; PULSE 60–72; RESP 12–18; TEMP 36–36.2; O2SAT 99–100; BMI 22.3
--- NOTE | ~2021-07-18 | FL_ITS ---
EXAMINATION: XR FLUOROSCOPY WITH IMAGES CLINICAL INFORMATION: Joint effusion COMPARISON: None. TECHNIQUE: Fluoroscopy performed by Stacy. Fluoroscopy time: 0.9 minutes DAP: 14 mGycm2 Images: 6 FINDINGS: Images submitted show surgical instrument overlying the sacrum and the final image demonstrates a device overlying the right and probable left SI joints. FL/FL guidance in OR IMPRESSION: Fluoroscopy provided with images
--- NOTE | 2021-07-18 13:02 | P.HPSUR_ITS ---
Pre-Procedural Eval Section A Date of Service: 07/18/21 The patient is an INPATIENT: No Changes since office visit: Yes Patient answered all questions The History & Physical has been completed within 30 days and I have reviewed it.: No Section B Chief Complaint: Sacroiliitis, Sacrococcygeal Disorders Details of Present Illness: As above Relevant Social History: None Present Medications: see Short Stay Collaborative assessment Medical History: No relevant PMH History of Previous Operations: No relevant previous surgery Allergies: Allergies Allergy/AdvReac Type Severity Reaction Status Date / Time meperidine [From Demerol] Allergy Intermediate Itching Verified 07/18/21 12:57 NSAIDS (Non-Steroidal Allergy Intermediate GI UPSET/ Verified 07/18/21 12:57 Anti-Inflamma COFFEE [NSAIDS (NON-STEROIDAL GROUND ANTI-INFLAMMA] EMESIS Sulfa (Sulfonamide Allergy Intermediate SWELLING Verified 07/18/21 12:57 Antibiotics) OF FACE [SULFA (SULFONAMIDE HANDS, AND ANTIBIOTICS)] FEET Review of Systems Sugical H&P ROS: Negative: Constitution, Cardiovascular, Respiratory, Neurological, Psychiatric, Hem-Onc, Allergic/Immunologic, Gastrointestinal, Genitourinary, Musculoskeletal, Integumentary, Endocrine and Eyes/Ears/Nose/Throat Exam Surgical H&P Exam: Normal: HEENT, Normal: Heart, Normal: Lungs, Normal: Extremi ties, Normal: Abdomen, Normal: Skin and Normal: Neurological Plan Diagnosis/Plan: Unchanged I have reviewed the history and physical and performed a pertinent physical examination on my patient. No changes have occurred unless specified.
[2021-07-18] MEDS: Lactated Ringers 1,000 ML 100 ML IVCONT (13:21)
--- NOTE | 2021-07-18 13:45 | P.BOP_ITS ---
Brief Operative Note Date of Service: 07/18/21 Pre-op diagnosis: Sacroiliitis Post-op diagnosis: same Procedure: Left sacroiliac joint fusion Implants: cadaver bone graft supplemented with biologics. Surgeon: Carlos Boo MD Anesthesia: MAC Was an Rubber Insulator used for this Procedure?: No Estimated blood loss (mL): 30 Pathology: none sent Condition: stable Disposition: PACU
--- NOTE | 2021-07-18 13:51 | W.PM.OPN ---
Operative Note Operative Note Date of Service: 07/18/21 Narrative: Susana is very pleasant 55 years old female who is suffering right sacroiliac joint insufficiency and sacroiliitis on the right and left sides .? She already had successful sacroiliac joint fusion on the right. Today she came to the operating room to perform 2nd procedure on the left. She failed conservative management of sacroiliitis.??She came today to receive the procedures as above.??The risks and benefits including bleeding, infection, peripheral nerve damage, failure to reduce the pain were explained to the patient.? The patient came to the operating room, she was positioned on the operating table prone, [place] [employer] monitors were applied and patient was deeply sedated. The patient was administered 2. grams cefazolin IV approximately 25 minutes before the start of the procedure.? Time-out was performed delineating correct site, side, and nature of the procedure, name and date of of the patient, risk of fire, need for DVT prophylaxis, need for antibiotics.? Lower back and bilateral buttocks were prepped with ChloraPrep and draped with full body drape. 3. 5 cm posterior midline incision over the projection of the left S1 foramina was performed.? Soft tissue dissection done to sacroiliac joint and thorough blind dissection was made in the direction of the?sacroiliac joint.? Guidewire- pin was inserted into the sacroiliac joint and guiding instrument was inserted into the joint using the pin as a guide and advanced into the joint on the intermittent anterior posterior and lateral views.??? After that pin was removed and rasping device was inserted to broach and rasp sacroiliac joint.? Once joint was prepared and inserted the structural allograft implant was hammered into the joint . It was packed with ortho biologics in and around the implant to provide better opportunity? for bones fusion.? The position of the allograft was confirmed radiographically.? The wound was irrigated hemostasis was achieved wound was closed in 2 layers.? Surgery was concluded by performing standard suture closing technique:? 0 Polysorb suture was used to close the wound and silk-0 suture vertical mattress was used to approximate the levels of the skin.? Injection of the lidocaine 2% mixed with bupivacaine 0.5% was injected into the wound before closure.? Sterile?dressing was applied with bacitracin ointment .? The patient tolerated procedure well she was awaken and taken outside of the operating room to PACU where she recovered uneventfully. She went home without immediate complications. She will be wearing an SI joint fixation belt for the 10 weeks after the procedure.
[2021-07-18] MEDS: fentaNYL citrate/PF 100 MCG/2 ML VIAL 50 MCG IVPUSH ×2 (15:46→15:55)
[2021-07-18] MEDS: oxyCODONE HCl Immed Release 5 MG TABLET PO (15:47)
== END 2021-07-18 16:55 | disposition home or self-care (01) ==
PROVIDERS: PCP Family Medicine; Visit Provider Anesthesiology
PROC: (CPT 27279; principal; 2021-07-18 14:10)
DX: M46.1 Sacroiliitis, not elsewhere classified (principal); M53.3 Sacrococcygeal disorders, not elsewhere classified; G89.4 Chronic pain syndrome; M51.36 Other intervertebral disc degeneration, lumbar region; M47.816 Spondylosis without myelopathy or radiculopathy, lumbar region; M76.31 Iliotibial band syndrome, right leg; Z88.2 Allergy status to sulfonamides; Z88.8 Allergy status to other drugs, medicaments and biological substances; F17.210 Nicotine dependence, cigarettes, uncomplicated
CPT/HCPCS: 27279; C1713; J0131; J0690; J2250; J2370; J3010; J3370

== ENCOUNTER → 2021-07-26 11:11 | Outpatient (BNVA) | payer OTHER, SELFPAY | PROVIDERS: PCP Family Medicine; Visit Provider Anesthesiology ==

== ENCOUNTER → 2021-07-31 11:31 | Outpatient (BNVA) | payer OTHER, SELFPAY | PROVIDERS: PCP Family Medicine; Visit Provider Anesthesiology | DX: M53.3 Sacrococcygeal disorders, not elsewhere classified (principal); M46.1 Sacroiliitis, not elsewhere classified; M51.36 Other intervertebral disc degeneration, lumbar region; M47.816 Spondylosis without myelopathy or radiculopathy, lumbar region; M76.31 Iliotibial band syndrome, right leg; G89.4 Chronic pain syndrome | CPT/HCPCS: 99212 ==

== ENCOUNTER 2022-02-05 09:16 | Inpatient (IN) | payer OTHER, SELFPAY ==
[2022-02-05] VITALS (8 sets, daily range): BP systolic 87–132; BP diastolic 48–82; PULSE 63–90; RESP 15–20; TEMP 36.6–37.1; O2SAT 97–100; BMI 23.0
--- NOTE | 2022-02-05 10:13 | ED_ITS ---
HPI - General Adult General Chief complaint: Psychiatric Symptoms Stated complaint: CRISIS Time Seen by Provider: 02/05/22 09:52 Source: patient Limitations: no limitations History of Present Illness HPI narrative: This is a 56-year-old female with a history of bipolar disorder, complains of worsened depression over the last week or so, with increasing suicidal feelings over last few days. The patient has thought of using a helium tank and tubing to kill herself. Patient has had suicidal ideation in the past. 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 The patient has done some recent stressors. She is on social security/disability and has limited income. Car that she has had for 18 years last week. She also has had of an uncle and another close fa jeremi friend in the last few weeks. She has chronic sacroiliac pain and has had prior surgery in that area. She also has history of anemia. Her tailbone area has been bothering her a lot she has been having decide on donut pillows. She has been having trouble sleeping. She expresses concern about being a burden to her adult children Related Data Home Medications Medication Instructions Recorded Confirmed cholecalciferol (vitamin D3) 50 50 mcg PO DAILY 08/28/20 07/15/21 mcg (2,000 unit) capsule clonazepam 1 mg tablet 1 mg PO BID 08/28/20 07/15/21 diclofenac sodium 1 % topical gel 2 g TOPICAL QID PRN 08/28/20 07/15/21 duloxetine 60 mg capsule,delayed 60 mg PO DAILY 08/28/20 07/15/21 release ferrous sulfate 325 mg (65 mg 325 mg PO DAILY 08/28/20 07/18/21 iron) tablet levothyroxine 75 mcg tablet 75 mcg PO DAILY 08/28/20 07/15/21 lithium carbonate 300 mg 600 mg PO BEDTIME 08/28/20 07/18/21 tablet,extended release omeprazole 40 mg capsule,delayed 40 mg PO DAILY 08/28/20 07/15/21 release Previous Rx's Medication Instructions Recorded dextroamphetamine-amphetamine 15 15 mg PO BID #60 tab 09/26/20 mg tablet (Adderall) Allergies Allergy/AdvReac Type Severity Reaction Status Date / Time meperidine [From Demerol] Allergy Intermediate Itching Verified 07/31/21 12:04 NSAIDS (Non-Steroidal Allergy Intermediate GI UPSET/ Verified 07/31/21 12:04 Anti-Inflamma COFFEE [NSAIDS (NON-STEROIDAL GROUND ANTI-INFLAMMA] EMESIS Sulfa (Sulfonamide Allergy Intermediate SWELLING Verified 07/31/21 12:04 Antibiotics) OF FACE [SULFA (SULFONAMIDE HANDS, AND ANTIBIOTICS)] FEET Review of Systems Review of Systems: Yes all other systems are reviewed and are negative Constitutional: Constitutional: Reports as per HPI and Denies fever(s) Eyes: Eyes: Reports as per HPI and Reports no additional eye complaints ENT: Reports system reviewed and no additional complaints, except as documented, Reports as per HPI, Denies nasal congestion, Denies nasal discharge and Denies sore throat Cardiovascular: Cardiovascular: Reports as per HPI, Denies chest pain and Denies dyspnea Respiratory: Respiratory: Reports as per HPI, Denies cough and Denies dyspnea Gastrointestinal: Gastrointestinal: Reports as per HPI, Denies abdominal pain, Denies diarrhea and Denies vomiting Genitourinary: Genitourinary: Reports urinary frequency Musculoskeletal: Musculoskeletal: Reports no additional musculoskeletal complaints, Reports back pain (Chronic sacroiliac) and Denies numbness Integumentary/Breasts: Skin/Breast: Reports as per HPI and Denies rash Neurologic: Reports as per HPI, Denies focal weakness and Denies numbness Psychiatric: Psychiatric: Reports as per HPI, Reports depression, Reports hopelessness and Reports suicidal ideation Endocrine: Endocrine: Reports no additional endocrine complaints and Reports as per HPI Hematologic/Lymphatic: Hematologic/Lymphatic: Reports no additional hematologic/lymphatic complaints, Reports as per HPI and Reports other (No peripheral edema) [facility] Past Medical History Medical History ADHD Anemia Bipolar disorder Chronic back pain Chronic pain syndrome Dermoid cyst Disc degeneration, lumbar GERD (gastroesophageal reflux disease) Hx of endometriosis Hypothyroidism Iliotibial band syndrome affecting right lower leg Insomnia Osteoarthritis PUD (peptic ulcer disease) Sacroiliac joint dysfunction of left side Sacroiliac joint dysfunction of right side Sacroiliitis, not elsewhere classified Spondylosis without myelopathy or radiculopathy, lumbar region Subarachnoid bleed Surgical History History of surgery History of surgery Hx of section Social History Social History Household Members: Significant Other Alcohol intake: never Patient Tobacco Use Status: Current everyday Tobacco user Tobacco use type: Cigarette Cigarette Packs Per Day: 1 Cigarettes Per Day: 10 Years Smoked: 40 Smoked in Last 30 Days: Yes Use of substances other than those prescribed or required for medical reasons: Yes Substance Use Type: Marijuana Substance Use Frequency: Occasionally Last Used Substance: Weeks (ago) Any prior treatment program specific to substance use: No Advance Directives: No Advance Directives Information Provided: Yes Patient : No Physical Exam ED Vital Signs: Vital Signs - 24 hr 02/05/22 09:48 02/05/22 12:57 02/05/22 14:04 Temperature 97.9 F 98.7 F Pulse Rate 90 63 83 Respiratory Rate 20 16 16 Blood Pressure 132/82 97/68 109/70 Pulse Oximetry 100 100 100 BMI result Body Mass Index 23.0 Const General: no acute distress Orientation/consciousness: patient oriented x3 HENMT Head: Yes normal to inspection General nose exam: Normal external nose present Mouth: moist mucous membranes Throat: Yes posterior oropharynx normal, Yes tonsils normal and Yes uvula midline Eyes Eyelids: Yes eyelids normal Conjunctivae: conjunctivae normal Pupils: Equal, round and reactive pupils present Neck Neck: Yes supple Resp Effort & Inspection: normal respiratory effort Auscultation: clear to auscultation bilaterally Cardio Rate: regular rate Rhythm: regular rhythm Heart sounds: S1 normal heart sound present, S2 normal heart sound present, no gallops, no murmurs and no rubs GI Inspection: No distended Palpation (GI): Soft to palpation and nontender Auscultation: normal bowel sounds Skin General skin exam: other (Warm and dry) Neuro General: patient oriented x3 and CN's II-XI intact bilaterally Cranial nerves: Yes Equal, round and reactive pupils present Extrem General: Yes no pedal edema Psych Other: Depressed affect, tearful at times Speech and movement: Clear speech present Affect: normal affect Attitude: cooperative Medical Decision Making MDM Narrative Medical decision making narrative: Patient depressed, suicidal, has specific plans. Patient was evaluated by crisis team and is being placed on a Section 12, bed search is being initiated. Patient was given Ativan 1 mg IV for anxiety, nicotine patch has also been ordered. Lab Data Lab results reviewed: Yes I reviewed the patient's lab results. Labs: Lab Results 02/05/22 02/05/22 Range/Units 11:24 13:23 Urine Opiates Screen Not Detected (Not Detect) Urine Fentanyl Screen Not Detected (Not Detect) Ur Barbiturates Screen Not Detected (Not Detect) Ur Phencyclidine Scrn Not Detected (Not Detect) Ur Amphetamines Screen POSITIVE H (Not Detect) U Benzodiazepines Scrn POSITIVE H (Not Detect) Urine Cocaine Screen Not Detected (Not Detect) U Marijuana (THC) Screen Not Detected (Not Detect) COVID-19 (GORDY) Negative (Negative) COVID-19 Clin Com See Note Discharge Plan Discharge Clinical Impression: Depression with suicidal ideation Prescriptions: No Action clonazepam 1 mg Tablet 1 mg PO BID 0RF omeprazole 40 mg Capsule,Delayed Release(Dr/Ec) 40 mg PO DAILY 0RF Label Comments: Per pharmacy last filled May for 3 month supply levothyroxine 75 mcg Tablet 75 mcg PO DAILY 0RF ferrous sulfate 325 mg (65 mg iron) Tablet 325 mg PO DAILY 0RF duloxetine 60 mg Capsule,Delayed Release(Dr/Ec) 60 mg PO DAILY 0RF diclofenac sodium 1 % Gel 2 g TOPICAL QID PRN (Reason: Pain) 0RF Label Comments: Pt stated she gets OTC cholecalciferol (vitamin D3) 50 mcg (2,000 unit) Capsule 50 mcg PO DAILY 0RF Label Comments: Last filled 08/09 90 day supply lithium carbonate 300 mg Tablet Extended Release 600 mg PO BEDTIME 0RF Label Comments: Per pharmacy last filled August 19, 2020 for 1 month supply. dextroamphetamine-amphetamine [Adderall] 15 mg tablet 15 mg PO BID Qty: 60 0RF Rx Instructions: administer doses at least 4-6 hours apart
[2022-02-05 11:45] LABS: Amphetamine Screen Urine POSITIVE (Not Detect); Barbiturates, Urine Not Detected (Not Detect); Benzodiazepines Screen Urine POSITIVE (Not Detect); Cannabinoid Screen Urine Not Detected (Not Detect); Cocaine Screen Urine Not Detected (Not Detect); Fentanyl, urine Not Detected (Not Detect); Opiate Screen Urine Not Detected (Not Detect); Phencyclidine Screen Urine Not Detected (Not Detect)
[2022-02-05] MEDS: LORazepam 1 MG TABLET PO (12:15)
[2022-02-05 13:46] LABS: COVID-19 Test Negative (Negative)
--- NOTE | 2022-02-05 14:07 | PC.NURSE ---
cox (bhn) at bedside.
[2022-02-05] MEDS: Nicotine 21 MG PATCH.TD24 TRANSDERMA (16:16)
--- NOTE | 2022-02-05 19:10 | PC.NURSE ---
pt tearful at times and wanting to smoke, Nicotoine patch applied. pt sleeping and no other concerns noted
[2022-02-05] MEDS: Lithium Carbonate ER 300 MG TABLET.ER 600 MG PO ×2 (22:35→22:36)
--- NOTE | 2022-02-05 22:41 | PC.NURSE ---
pt was asking for her nightly medications, stated that she has been taking her clonopin twice daily. pt given clonopin and pt refused it stating that it doesnt do anything because she has a tolerance to it. pt given jay dorys and crackers.
[2022-02-06] VITALS (8 sets, daily range): BP systolic 90–151; BP diastolic 52–69; PULSE 68–109; RESP 15–18; TEMP 36.4–36.7; O2SAT 98–100
--- NOTE | 2022-02-06 02:12 | PC.NURSE ---
pt resting comfortably in bed
[2022-02-06] MEDS: Omeprazole 40 MG CAPSULE.DR PO (08:02)
[2022-02-06] MEDS: Amphetamine Mixed Salts 10 MG TABLET 15 MG PO (08:02)
[2022-02-06] MEDS: Levothyroxine Sodium 100 MCG TABLET PO (08:02)
[2022-02-06] MEDS: Cholecalciferol (Vitamin D3) 25 MCG TABLET 50 MCG PO (08:02)
[2022-02-06] MEDS: DULoxetine HCl 60 MG CAPSULE.DR PO (08:02)
--- NOTE | 2022-02-06 13:46 | ECG_ITS ---
Test Reason : PSYCH MEDS Blood Pressure : / mmHG Vent. Rate : 062 BPM Atrial Rate : 062 BPM P-R Int : 146 ms QRS Dur : 102 ms QT Int : 388 ms P-R-T Axes : 070 -23 047 degrees QTc Int : 393 ms Normal sinus rhythm Possible Left atrial enlargement Incomplete right bundle branch block Borderline ECG When compared with ECG of 16-JUN-2020 20:16, Nonspecific T wave abnormality now evident in Anterior leads Referred By: Conrad Kuhn Electronically Signed By:CHEMO LIU MD
--- NOTE | 2022-02-06 14:00 | PC.NURSE ---
Addendum entered by Sienna Childress 02/06/22 15:22: pt to be admitted to m3 Original Note: rn to rn report given, pt to go to m5. pt aware of plan of care.
[2022-02-06 14:31] LABS: MANUAL DIFF FLAG NO
[2022-02-06 14:41] LABS: Basophils Absolute Auto 0.1 X10*3/uL (0.0-0.2); Basophils Percent Auto 1.3 % (0-2); Eosinophils Absolute Auto 0.4 X10*3/uL (0.0-0.4); Eosinophils Percent Auto 5.3 % (0-4); Hematocrit 43.7 % (37.0-47.0); Hemoglobin 14.7 g/dl (12.0-16.0); Imm Gran Abs Auto 0.03 X10*3/uL (0.00-0.03); Imm Gran Pct Auto 0.4 % (0.0-0.4); Lymphocytes Absolute Auto 1.9 X10*3/uL (1.2-4.9); Lymphocytes Percent Auto 27.5 % (20-40); Mean Corpuscular HGB Conc 33.6 g/dl (31.0-35.0); Mean Platelet Volume 10.1 fL (9.4-12.3); Monocytes Absolute Auto 0.5 X10*3/uL (0.1-1.2); Monocytes Percent Auto 6.5 % (2-11); Neutrophils Absolute Auto 4.1 x10*3/uL (2.0-8.3); Platelet Count 330 X10*3/uL (160-400); Red Cell Distribution Width 12.2 % (11.0-16.0); White Blood Count 6.9 X10*3/uL (4.8-10.8)
[2022-02-06 14:54] LABS: COVID-19 Test Negative (Negative)
[2022-02-06 16:20] LABS: Lithium 0.27 mmol/L (0.60-1.20)
[2022-02-06 16:46] LABS: TSH reflex Free T4 1.22 uIU/mL (0.32-4.0)
[2022-02-06 16:59] LABS: Folate 5.5 ng/mL (> or = 4.0); Vitamin B12 230 pg/mL (200-900)
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
[2022-02-06 20:01] LABS: Alanine Aminotransferase 20 U/L (0-31); Albumin Level 4.3 g/dL (3.5-5.0); Alkaline Phosphatase 65 U/L (39-117); Anion Gap 11 (12-20); Aspartate Amino Transferase 22 U/L (5-31); Bilirubin Total 0.4 mg/dL (0.0-1.0); Blood Urea Nitrogen 12 mg/dL (9-16); Calcium 9.6 mg/dL (8.4-10.2); Carbon Dioxide 27 mmol/L (22-29); Chloride 104 mmol/L (96-108); Creatinine Clr Calc Pharmacy 67.4; Estimated Glomerular Filt Rate > 60; Glucose Random 85 mg/dL (60-115); Potassium 4.2 mmol/L (3.3-5.1); Sodium 138 mmol/L (135-145); Total Protein 7.5 g/dL (6.5-8.0)
[2022-02-06] MEDS: Lithium Carbonate ER 300 MG TABLET.ER 600 MG PO (20:43)
[2022-02-06] MEDS: Ferrous Sulfate 324 MG TABLET.DR PO (20:43)
--- NOTE | 2022-02-06 20:54 | PC.NURSE ---
Patient signed a 3 day notice at 02/06/22 20:55
[2022-02-07] MEDS: Nicotine 21 MG PATCH.TD24 TRANSDERMA (06:36)
[2022-02-07] MEDS: Cholecalciferol (Vitamin D3) 25 MCG TABLET 50 MCG PO (09:03)
[2022-02-07] MEDS: DULoxetine HCl 60 MG CAPSULE.DR PO (09:03)
[2022-02-07] MEDS: Omeprazole 40 MG CAPSULE.DR PO (09:03)
[2022-02-07] MEDS: Amphetamine Mixed Salts 10 MG TABLET 15 MG PO (09:03)
[2022-02-07] MEDS: Levothyroxine Sodium 100 MCG TABLET PO (09:03)
[2022-02-07 09:06] VITALS: BP 91/48; PULSE 60; RESP 17; TEMP 36.4; O2SAT 99
--- NOTE | 2022-02-07 09:15 | PHA.MEDREC ---
Pharmacy Consult ? Medication Reconciliation RN has completed the medication reconciliation. Pharmacy reviewed.
[2022-02-07 09:29] LABS: Cholesterol 142 mg/dL; HDL Cholesterol 37 mg/dL; LDL Cholesterol Calculated 87 mg/dl; Triglycerides 91 mg/dL
[2022-02-07 10:11] LABS: Estimated Average Glucose 94 mg/dL; Hemoglobin A1c % 4.9 %
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
[2022-02-07 21:00] VITALS: BP 93/58; PULSE 86; RESP 16; TEMP 26.6; O2SAT 99
[2022-02-07] MEDS: Lithium Carbonate ER 300 MG TABLET.ER 600 MG PO (21:35)
[2022-02-07] MEDS: Ferrous Sulfate 324 MG TABLET.DR PO (21:35)
[2022-02-07] MEDS: Cyanocobalamin (Vitamin B-12) 1,000 MCG/ML VIAL 1000 MCG IM (22:22)
[2022-02-08 08:56] VITALS: BP 111/56; PULSE 80; RESP 17; TEMP 36.7; O2SAT 100
[2022-02-08] MEDS: DULoxetine HCl 60 MG CAPSULE.DR PO (09:10)
[2022-02-08] MEDS: Nicotine 21 MG PATCH.TD24 TRANSDERMA (09:10)
[2022-02-08] MEDS: Omeprazole 40 MG CAPSULE.DR PO (09:10)
[2022-02-08] MEDS: Levothyroxine Sodium 100 MCG TABLET PO (09:10)
[2022-02-08] MEDS: Cholecalciferol (Vitamin D3) 25 MCG TABLET 50 MCG PO (09:10)
--- NOTE | 2022-02-08 16:13 | P.PNPSI_ITS ---
Subjective Subjective Date of Service: 02/08/22 Reason For Visit: SI Subjective Notes: Conditional Voluntary Interim History: 02/08/22:Mood improved. No SI. Feels safe. Hopes to reconnect with OP providers. Sleep poor. Rates mood 2/10. Review of Systems Review of Systems Yes all other systems are reviewed and are negative Constitutional: Reports as per HPI, Reports fatigue, Denies fever(s) and Reports lethargy Eyes: Reports as per HPI and Reports no additional eye complaints Reports system reviewed and no additional complaints, except as documented, Reports as per HPI, Denies nasal congestion, Denies nasal discharge and Denies sore throat Cardiovascular: Reports as per HPI, Denies chest pain, Denies rapid heart rate, Denies irregular heart rhythm, Denies lightheadedness and Denies dyspnea Respiratory: Reports as per HPI, Denies chest congestion, Denies cough and Denies dyspnea Gastrointestinal: Reports as per HPI, Denies abdominal pain, Denies constipation, Denies diarrhea and Denies vomiting Musculoskeletal: Reports no additional musculoskeletal complaints, Reports back pain and Denies numbness Skin/Breast: Reports as per HPI and Denies rash Reports as per HPI, Denies focal weakness and Denies numbness Psychiatric: Reports as per HPI, Reports depression, Reports hopelessness and Reports suicidal ideation Endocrine: Reports no additional endocrine complaints, Reports as per HPI and Reports fatigue Hematologic/Lymphatic: Reports no additional hematologic/lymphatic complaints, Reports as per HPI and Reports other (No peripheral edema) Mental Status Exam Mental Status Exam Narrative: Appearance: casually groomed, fair hygiene in NAD Behavior:cooperative psychomotor: no agitation or retardation noted Speech:clear, normal rate/rhythm/volume, spontaneous Thought process:linear Thought content:no signs of psychosis, feeling anxious but better Mood: anxious Affect: congruent, tearful at times SI:denies HI:none VH/AH:none Delusions:none Insight/judgment:fair x 2. Memory/cog: alert, oriented x 3. grossly intact to conversational testing but not formally tested. Diagnostics Vital Signs (24Hr): Vital Signs - 24 hr 02/07/22 21:00 02/08/22 08:56 Temperature 79.9 F L 98.1 F Pulse Rate 86 80 Respiratory Rate 16 17 Blood Pressure 93/58 L 111/56 L Pulse Oximetry 99 100 BMI result Body Mass Index 23.0 Labs Results: 02/06/22 14:23 02/06/22 15:57 Labs: Laboratory Results - last 48 hr 02/06/22 02/06/22 02/06/22 15:57 15:57 15:57 Sodium 138 Potassium 4.2 Chloride 104 Carbon Dioxide 27 Anion Gap 11 L BUN 12 Creatinine 0.78 Estim Creat Clear Calc 67.4 Estimated GFR > 60 Random Glucose 85 Estimat Average Glucose Hemoglobin A1c % Calcium 9.6 Total Bilirubin 0.4 AST 22 ALT 20 Alkaline Phosphatase 65 D Total Protein 7.5 Albumin 4.3 Triglycerides Cholesterol LDL Cholesterol, Calc HDL Cholesterol Vitamin B12 230 Folate 5.5 TSH 1.22 [place] 02/06/22 02/07/22 02/07/22 15:57 08:23 08:24 Sodium Potassium Chloride Carbon Dioxide Anion Gap BUN Creatinine Estim Creat Clear Calc Estimated GFR Random Glucose Estimat Average Glucose 94 Hemoglobin A1c % 4.9 Calcium Total Bilirubin AST ALT Alkaline Phosphatase Total Protein Albumin Triglycerides 91 Cholesterol 142 LDL Cholesterol, Calc 87 HDL Cholesterol 37 Vitamin B12 Folate TSH [place] 0.27 L Medications Medications Current Medications Acetaminophen (Acetaminophen 325 Mg Tablet) 650 mg PO Q6H PRN PRN Reason: Headache/Pain Mild Scale (1-3) Al Hydroxide/Mg Hydroxide (Magnesium Hydrox/Alum Hydrox 30 Ml Oral.Susp) 30 ml PO Q6H PRN PRN Reason: Heartburn/Nausea Clonazepam (Clonazepam 1 Mg Tablet) 1 mg PO BID PRN PRN Reason: Anxiety Cyanocobalamin (Cyanocobalamin (Vitamin B-12) 1,000 Mcg/Ml Vial) 1,000 mcg IM Q7D [facility] Stop: 02/28/22 15:01 Last Admin: 02/07/22 22:22 Dose: 1,000 mcg Documented by: Duloxetine HCl (Duloxetine Hcl 60 Mg Capsule.) 60 mg PO DAILY [facility] Last Admin: 02/08/22 09:10 Dose: 60 mg Documented by: Ferrous Sulfate (Ferrous Sulfate 324 Mg Tablet.) 324 mg PO BEDTIME [facility] Last Admin: 02/07/22 21:35 Dose: 324 mg Documented by: Hydroxyzine HCl (Hydroxyzine Hcl 25 Mg Tablet) 25 mg PO Q6H PRN PRN Reason: Anxiety Levothyroxine Sodium (Levothyroxine Sodium 100 Mcg Tablet) 100 mcg PO DAILY [facility] Last Admin: 02/08/22 09:10 Dose: 100 mcg Documented by: [place] Carbonate ([place] Carbonate Er 300 Mg Tablet.Er) 600 mg PO BEDTIME [facility] Last Admin: 02/07/22 21:35 Dose: 600 mg Documented by: Magnesium Hydroxide (Milk Of Magnesia 30 Ml Oral.Susp) 30 ml PO DAILY PRN PRN Reason: Constipation Nicotine (Nicotine 21 Mg Patch.Td24) 21 mg TRANSDERMA DAILY [facility] Last Admin: 02/08/22 09:10 Dose: 21 mg Documented by: Nicotine Polacrilex (Nicotine Polacrilex 2 Mg Gum) 2 mg BUCCAL Q2H PRN PRN Reason: Nicotine Cravings Omeprazole (Omeprazole 40 Mg Capsule.Dr) 40 mg PO DAILY [facility] Last Admin: 02/08/22 09:10 Dose: 40 mg Documented by: Trazodone HCl (Trazodone Hcl 50 Mg Tablet) 50 mg PO BEDTIME PRN PRN Reason: Insomnia Vitamin D (Cholecalciferol (Vitamin D3) 25 Mcg Tablet) 50 mcg PO DAILY [facility] Last Admin: 02/08/22 09:10 Dose: 50 mcg Documented by: Allergies Allergies Allergy/AdvReac Type Severity Reaction Status Date / Time meperidine [From Demerol] Allergy Intermediate Itching Verified 07/31/21 12:04 NSAIDS (Non-Steroidal Allergy Intermediate GI UPSET/ Verified 07/31/21 12:04 Anti-Inflamma COFFEE [NSAIDS (NON-STEROIDAL GROUND ANTI-INFLAMMA] EMESIS Sulfa (Sulfonamide Allergy Intermediate SWELLING Verified 07/31/21 12:04 Antibiotics) OF FACE [SULFA (SULFONAMIDE HANDS, AND ANTIBIOTICS)] FEET Assessment & Plan Assessment & Plan (1) Bipolar 2 disorder, major depressive episode: Status: Acute Code(s): F31.81 - Bipolar II disorder (2) Chronic post-traumatic stress disorder (PTSD): Status: Acute Code(s): F43.12 - Post-traumatic stress disorder, chronic Plan Ms. Mandujano is a 56 year-old woman with hx of Bipolar 2 Disorder, PTSD, who self presented to [facility] ED due to increase anxious mood, panic attacks, depression and suicidal ideation with plan to OD. Pt reports number of stressors including recent losses, financial stress and problems with partner. We discussed risks, benefits and alternative treatment options. Pt has had over the years several medication trials- reports current medications most helpful- especially cymbaltal and lithium. We discussed how adderall can worsened anxiety/panic attacks and fight or flight responses (as pt currently experiencing increase symptoms). Also, pt has low b12 and reports feeling physically tired for severals months independent of mood. Will restart b12 supplements. Provided information to patient about prazosin for anxiety, continuing clonazepam at current dose (1mg po BID) and cymbalta and lithium at current doses. PLAN 1. admit to M3, CV- 2 day, 15 minutes checks 2. continue cymbalta, lithium, clonazepam, consider holding off on adderall. Also provided pt with info on prazosin for anxiety. 3. Obtain collateral information 4. Aftercare planning. 02/08: Ct meds. DC adderall. I spent minutes with the patient and/or on the patient floor today, greater than?50% of which was spent counseling/coordinating care. Reason for contiued inpatient stay Substantial Risk for: harm to self and inability to function
[2022-02-08 22:00] VITALS: BP 88/53; PULSE 79; RESP 18; TEMP 36.6; O2SAT 100
[2022-02-08] MEDS: Lithium Carbonate ER 300 MG TABLET.ER 600 MG PO (22:44)
[2022-02-08] MEDS: Ferrous Sulfate 324 MG TABLET.DR PO (22:44)
[2022-02-09 06:43] LABS: Thyroid Stimulating Hormone 0.51 uIU/mL (0.32-4.0)
[2022-02-09 09:02] VITALS: BP 85/51; PULSE 75; RESP 16; TEMP 36.6; O2SAT 99
[2022-02-09] MEDS: DULoxetine HCl 60 MG CAPSULE.DR PO (09:05)
[2022-02-09] MEDS: Omeprazole 40 MG CAPSULE.DR PO (09:05)
[2022-02-09] MEDS: Cholecalciferol (Vitamin D3) 25 MCG TABLET 50 MCG PO (09:05)
[2022-02-09] MEDS: Levothyroxine Sodium 100 MCG TABLET PO (09:05)
[2022-02-09] MEDS: Nicotine 21 MG PATCH.TD24 TRANSDERMA (09:06)
--- NOTE | 2022-02-09 10:47 | HO.PSYCHPN ---
Subjective Subjective Date of Service: 02/09/22 Reason For Visit: SI Interim History: 02/08/22:Mood improved. No SI. Feels safe. Hopes to reconnect with OP providers. Sleep poor. Rates mood 11/28. 02/09/22: Mood improving. Pleased with fresh air break. Review of Systems Review of Systems Yes all other systems are reviewed and are negative Constitutional: Reports as per HPI, Reports fatigue, Denies fever(s) and Reports lethargy Eyes: Reports as per HPI and Reports no additional eye complaints Reports system reviewed and no additional complaints, except as documented, Reports as per HPI, Denies nasal congestion, Denies nasal discharge and Denies sore throat Cardiovascular: Reports as per HPI, Denies chest pain, Denies rapid heart rate, Denies irregular heart rhythm, Denies lightheadedness and Denies dyspnea Respiratory: Reports as per HPI, Denies chest congestion, Denies cough and Denies dyspnea Gastrointestinal: Reports as per HPI, Denies abdominal pain, Denies constipation, Denies diarrhea and Denies vomiting Musculoskeletal: Reports no additional musculoskeletal complaints, Reports back pain and Denies numbness Skin/Breast: Reports as per HPI and Denies rash Reports as per HPI, Denies focal weakness and Denies numbness Psychiatric: Reports as per HPI, Reports depression, Reports hopelessness and Reports suicidal ideation Endocrine: Reports no additional endocrine complaints, Reports as per HPI and Reports fatigue Hematologic/Lymphatic: Reports no additional hematologic/lymphatic complaints, Reports as per HPI and Reports other (No peripheral edema) Mental Status Exam Mental Status Exam Narrative: Appearance: casually groomed, fair hygiene in NAD Behavior:cooperative psychomotor: no agitation or retardation noted Speech:clear, normal rate/rhythm/volume, spontaneous Thought process:linear Thought content:no signs of psychosis, feeling anxious but better Mood: anxious Affect: congruent, tearful at times SI:denies HI:none VH/AH:none Delusions:none Insight/judgment:fair x 2. Memory/cog: alert, oriented x 3. grossly intact to conversational testing but not formally tested. Diagnostics Vital Signs (24Hr): Vital Signs - 24 hr 02/08/22 22:00 02/09/22 09:02 Temperature 97.8 F 97.8 F Pulse Rate 79 75 Respiratory Rate 18 16 Blood Pressure 88/53 L 85/51 L Pulse Oximetry 100 99 BMI result Body Mass Index 23.0 Labs Results: 02/06/22 14:23 02/06/22 15:57 Labs: Laboratory Results - last 48 hr 02/09/22 05:35 TSH 0.51 Medications Medications Current Medications Acetaminophen (Acetaminophen 325 Mg Tablet) 650 mg PO Q6H PRN PRN Reason: Headache/Pain Mild Scale (1-3) Al Hydroxide/Mg Hydroxide (Magnesium Hydrox/Alum Hydrox 30 Ml Oral.Susp) 30 ml PO Q6H PRN PRN Reason: Heartburn/Nausea Clonazepam (Clonazepam 1 Mg Tablet) 1 mg PO BID PRN PRN Reason: Anxiety Cyanocobalamin (Cyanocobalamin (Vitamin B-12) 1,000 Mcg/Ml Vial) 1,000 mcg IM Q7D [facility] Stop: 02/28/22 15:01 Last Admin: 02/07/22 22:22 Dose: 1,000 mcg Documented by: Duloxetine HCl (Duloxetine Hcl 60 Mg Capsule.) 60 mg PO DAILY [facility] Last Admin: 02/09/22 09:05 Dose: 60 mg Documented by: Ferrous Sulfate (Ferrous Sulfate 324 Mg Tablet.) 324 mg PO BEDTIME [facility] Last Admin: 02/08/22 22:44 Dose: 324 mg Documented by: Hydroxyzine HCl (Hydroxyzine Hcl 25 Mg Tablet) 25 mg PO Q6H PRN PRN Reason: Anxiety Levothyroxine Sodium (Levothyroxine Sodium 100 Mcg Tablet) 100 mcg PO DAILY [facility] Last Admin: 02/09/22 09:05 Dose: 100 mcg Documented by: [place] Carbonate ([place] Carbonate Er 300 Mg Tablet.Er) 600 mg PO BEDTIME [facility] Last Admin: 02/08/22 22:44 Dose: 600 mg Documented by: Magnesium Hydroxide (Milk Of Magnesia 30 Ml Oral.Susp) 30 ml PO DAILY PRN PRN Reason: Constipation Nicotine (Nicotine 21 Mg Patch.Td24) 21 mg TRANSDERMA DAILY [facility] Last Admin: 02/09/22 09:06 Dose: 21 mg Documented by: Nicotine Polacrilex (Nicotine Polacrilex 2 Mg Gum) 2 mg BUCCAL Q2H PRN PRN Reason: Nicotine Cravings Omeprazole (Omeprazole 40 Mg Capsule.) 40 mg PO DAILY [facility] Last Admin: 02/09/22 09:05 Dose: 40 mg Documented by: Trazodone HCl (Trazodone Hcl 50 Mg Tablet) 50 mg PO BEDTIME PRN PRN Reason: Insomnia Vitamin D (Cholecalciferol (Vitamin D3) 25 Mcg Tablet) 50 mcg PO DAILY [facility] Last Admin: 02/09/22 09:05 Dose: 50 mcg Documented by: Allergies Allergies Allergy/AdvReac Type Severity Reaction Status Date / Time meperidine [From Demerol] Allergy Intermediate Itching Verified 07/31/21 12:04 NSAIDS (Non-Steroidal Allergy Intermediate GI UPSET/ Verified 07/31/21 12:04 Anti-Inflamma COFFEE [NSAIDS (NON-STEROIDAL GROUND ANTI-INFLAMMA] EMESIS Sulfa (Sulfonamide Allergy Intermediate SWELLING Verified 07/31/21 12:04 Antibiotics) OF FACE [SULFA (SULFONAMIDE HANDS, AND ANTIBIOTICS)] FEET Assessment & Plan Assessment & Plan (1) Bipolar 2 disorder, major depressive episode: Status: Acute Code(s): F31.81 - Bipolar II disorder (2) Chronic post-traumatic stress disorder (PTSD): Status: Acute Code(s): F43.12 - Post-traumatic stress disorder, chronic Plan Ms. Mandujano is a 56 year-old woman with hx of Bipolar 2 Disorder, PTSD, who self [place] [facility] [place] due to increase anxious mood, panic attacks, depression and suicidal ideation with plan to OD. Pt reports number of stressors including recent losses, financial stress and problems with partner. We discussed risks, benefits and alternative treatment options. Pt has had over the years several medication trials- reports current medications most helpful- especially cymbaltal and lithium. We discussed how adderall can worsened anxiety/panic attacks and fight or flight responses (as pt currently experiencing increase symptoms). Also, pt has low b12 and reports feeling physically tired for severals months independent of mood. Will restart b12 supplements. Provided information to patient about prazosin for anxiety, continuing clonazepam at current dose (1mg po BID) and cymbalta and lithium at current doses. PLAN 1. admit to [facility], CV- 2 day, 15 minutes checks 2. continue cymbalta, lithium, clonazepam, consider holding off on adderall. Also provided pt with info on prazosin for anxiety. 3. Obtain collateral information 4. Aftercare planning. 02/08: Ct meds. DC adderall. 02/09: Ct plan I spent minutes with the patient and/or on the patient floor today, greater than?50% of which was spent counseling/coordinating care. Reason for contiued inpatient stay Substantial Risk for: harm to self
[2022-02-09 22:15] VITALS: BP 92/55; PULSE 69; RESP 16; TEMP 36; O2SAT 100
[2022-02-09] MEDS: Ferrous Sulfate 324 MG TABLET.DR PO (22:33)
[2022-02-09] MEDS: Lithium Carbonate ER 300 MG TABLET.ER 600 MG PO (22:34)
[2022-02-10 08:52] VITALS: BP 98/56; PULSE 65; RESP 15; TEMP 36.2; O2SAT 99
[2022-02-10] MEDS: Nicotine 21 MG PATCH.TD24 TRANSDERMA (09:01)
[2022-02-10] MEDS: Omeprazole 40 MG CAPSULE.DR PO (09:02)
[2022-02-10] MEDS: Levothyroxine Sodium 100 MCG TABLET PO (09:02)
[2022-02-10] MEDS: DULoxetine HCl 60 MG CAPSULE.DR PO (09:02)
[2022-02-10] MEDS: Cholecalciferol (Vitamin D3) 25 MCG TABLET 50 MCG PO (09:02)
--- NOTE | 2022-02-10 11:15 | P.PNPSI_ITS ---
Subjective Subjective Date of Service: 02/10/22 Reason For Visit: SI Subjective Notes: 3 Day Interim History: Pt reports feeling less anxious, less depressed. She reports sleeping fairly well, although tends to wake up few times at night. She reports some tiredness. She denies SI/HI. She is looking forward to return home tomorrow and continue OP tx. Medication Compliance: Yes Side effects from medications: No Review of Systems Review of Systems Yes all other systems are reviewed and are negative Constitutional: Reports as per HPI, Reports fatigue, Denies fever(s) and Reports lethargy Eyes: Reports as per HPI and Reports no additional eye complaints Reports system reviewed and no additional complaints, except as documented, Reports as per HPI, Denies nasal congestion, Denies nasal discharge and Denies sore throat Cardiovascular: Reports as per HPI, Denies chest pain, Denies rapid heart rate, Denies irregular heart rhythm, Denies lightheadedness and Denies dyspnea Respiratory: Reports as per HPI, Denies chest congestion, Denies cough and Denie s dyspnea Gastrointestinal: Reports as per HPI, Denies abdominal pain, Denies constipation, Denies diarrhea and Denies vomiting Musculoskeletal: Reports no additional musculoskeletal complaints, Reports back pain and Denies numbness Skin/Breast: Reports as per HPI and Denies rash Reports as per HPI, Denies focal weakness and Denies numbness Psychiatric: Reports as per HPI, Reports depression, Reports hopelessness and Reports suicidal ideation Endocrine: Reports no additional endocrine complaints, Reports as per HPI and Reports fatigue Hematologic/Lymphatic: Reports no additional hematologic/lymphatic complaints, Reports as per HPI and Reports other (No peripheral edema) Mental Status Exam Mental Status Exam Narrative: Appearance: casually groomed, fair hygiene in NAD Behavior:cooperative psychomotor: no agitation or retardation noted Speech:clear, normal rate/rhythm/volume, spontaneous Thought process:linear Thought content:no signs of psychosis, feeling anxious but better Mood: better Affect: congruent, brighter SI:denies HI:none VH/AH:none Delusions:none Insight/judgment:fair x 2. Memory/cog: alert, oriented x 3. grossly intact to conversational testing but not formally tested. Diagnostics Vital Signs (24Hr): Vital Signs - 24 hr 02/10/22 08:52 02/10/22 18:00 Temperature 97.2 F 97.8 F Pulse Rate 65 68 Respiratory Rate 15 16 Blood Pressure 98/56 L 106/58 L Pulse Oximetry 99 99 BMI result Body Mass Index 23.0 Labs Results: 02/06/22 14:23 02/06/22 15:57 Medications Medications Current Medications Acetaminophen (Acetaminophen 325 Mg Tablet) 650 mg PO Q6H PRN PRN Reason: Headache/Pain Mild Scale (1-3) Al Hydroxide/Mg Hydroxide (Magnesium Hydrox/Alum Hydrox 30 Ml Oral.Susp) 30 ml PO Q6H PRN PRN Reason: Heartburn/Nausea Cyanocobalamin (Cyanocobalamin (Vitamin B-12) 1,000 Mcg/Ml Vial) 1,000 mcg IM Q7D [facility] Stop: 02/28/22 15:01 Last Admin: 02/07/22 22:22 Dose: 1,000 mcg Documented by: Duloxetine HCl (Duloxetine Hcl 60 Mg Capsule.) 60 mg PO DAILY [facility] Last Admin: 02/10/22 09:02 Dose: 60 mg Documented by: Ferrous Sulfate (Ferrous Sulfate 324 Mg Tablet.) 324 mg PO BEDTIME [facility] Last Admin: 02/10/22 22:18 Dose: 324 mg Documented by: Hydroxyzine HCl (Hydroxyzine Hcl 25 Mg Tablet) 25 mg PO Q6H PRN PRN Reason: Anxiety Levothyroxine Sodium (Levothyroxine Sodium 100 Mcg Tablet) 100 mcg PO DAILY [facility] Last Admin: 02/10/22 09:02 Dose: 100 mcg Documented by: [place] Carbonate ([place] Carbonate Er 300 Mg Tablet.Er) 600 mg PO BEDTIME [facility] Last Admin: 02/10/22 22:18 Dose: 600 mg Documented by: Magnesium Hydroxide (Milk Of Magnesia 30 Ml Oral.Susp) 30 ml PO DAILY PRN PRN Reason: Constipation Nicotine (Nicotine 21 Mg Patch.Td24) 21 mg TRANSDERMA DAILY [facility] Last Admin: 02/10/22 09:01 Dose: 21 mg Documented by: Nicotine Polacrilex (Nicotine Polacrilex 2 Mg Gum) 2 mg BUCCAL Q2H PRN PRN Reason: Nicotine Cravings Omeprazole (Omeprazole 40 Mg Capsule.) 40 mg PO DAILY [facility] Last Admin: 02/10/22 09:02 Dose: 40 mg Documented by: Trazodone HCl (Trazodone Hcl 50 Mg Tablet) 50 mg PO BEDTIME PRN PRN Reason: Insomnia Vitamin D (Cholecalciferol (Vitamin D3) 25 Mcg Tablet) 50 mcg PO DAILY [facility] Last Admin: 02/10/22 09:02 Dose: 50 mcg Documented by: Allergies Allergies Allergy/AdvReac Type Severity Reaction Status Date / Time meperidine [From Demerol] Allergy Intermediate Itching Verified 07/31/21 12:04 NSAIDS (Non-Steroidal Allergy Intermediate GI UPSET/ Verified 07/31/21 12:04 Anti-Inflamma COFFEE [NSAIDS (NON-STEROIDAL GROUND ANTI-INFLAMMA] EMESIS Sulfa (Sulfonamide Allergy Intermediate SWELLING Verified 07/31/21 12:04 Antibiotics) OF FACE [SULFA (SULFONAMIDE HANDS, AND ANTIBIOTICS)] FEET Assessment & Plan Assessment & Plan (1) Bipolar 2 disorder, major depressive episode: Status: Acute Code(s): F31.81 - Bipolar II disorder (2) Chronic post-traumatic stress disorder (PTSD): Status: Acute Code(s): F43.12 - Post-traumatic stress disorder, chronic Plan Ms. Mandujano is a 56 year-old woman with hx of Bipolar 2 Disorder, PTSD, who self presented to [facility] [place] [facility] due to increase anxious mood, panic attacks, depression and suicidal ideation with plan to OD. Pt reports number of stressors including recent losses, financial stress and problems with partner. We discussed risks, benefits and alternative treatment options. Pt has had over the years several medication trials- reports current medications most helpful- especially cymbal malik and lithium. We discussed how adderall can worsened anxiety/panic attacks and fight or flight responses (as pt currently experiencing increase symptoms). Also, pt has low b12 and reports feeling physically tired for severals months independent of mood. Will restart b12 supplements. Provided information to patient about prazosin for anxiety, continuing clonazepam at current dose (1mg po BID) and cymbalta and lithium at current doses. PLAN 1. admit to [facility], CV- 2 day, 15 minutes checks 2. continue cymbalta, lithium, clonazepam, consider holding off on adderall. Also provided pt with info on prazosin for anxiety. 3. Obtain collateral information 4. Aftercare planning. 02/08: Ct meds. DC adderall. 02/09: Ct plan 02/10 continue current meds- d/c on 02/11 I spent minutes with the patient and/or on the patient floor today, greater than?50% of which was spent counseling/coordinating care. Reason for contiued inpatient stay Substantial Risk for: stable for discharge
[2022-02-10 18:00] VITALS: BP 106/58; PULSE 68; RESP 16; TEMP 36.6; O2SAT 99
[2022-02-10] MEDS: Ferrous Sulfate 324 MG TABLET.DR PO (22:18)
[2022-02-10] MEDS: Lithium Carbonate ER 300 MG TABLET.ER 600 MG PO (22:18)
[2022-02-11] MEDS: Omeprazole 40 MG CAPSULE.DR PO (09:04)
[2022-02-11] MEDS: Levothyroxine Sodium 100 MCG TABLET PO (09:04)
[2022-02-11] MEDS: DULoxetine HCl 60 MG CAPSULE.DR PO (09:05)
[2022-02-11] MEDS: Cholecalciferol (Vitamin D3) 25 MCG TABLET 50 MCG PO (09:05)
[2022-02-11] MEDS: Nicotine 21 MG PATCH.TD24 TRANSDERMA (09:05)
--- NOTE | 2022-02-11 09:22 | P.DS_ITS ---
DS: Providers Provider Date of Service: 02/11/22 Date of admission: 02/06/22 15:06 Primary care physician: Sanjuanita Matthews MD DS: Diagnosis Discharge Diagnosis (1) Bipolar 2 disorder, major depressive episode: Status: Acute (2) Chronic post-traumatic stress disorder (PTSD): Status: Acute DS: Medications Discharge Medications Home Medications: Home Medications Medication Instructions Recorded Confirmed cholecalciferol (vitamin D3) 50 50 mcg PO DAILY 08/28/20 02/05/22 mcg (2,000 unit) capsule clonazepam 1 mg tablet 1 mg PO BID PRN 08/28/20 02/05/22 diclofenac sodium 1 % topical gel 2 g TOPICAL QID PRN 08/28/20 02/05/22 duloxetine 60 mg capsule,delayed 60 mg PO DAILY 08/28/20 02/05/22 release ferrous sulfate 325 mg (65 mg 325 mg PO BEDTIME 08/28/20 02/05/22 iron) tablet lithium carbonate 300 mg 600 mg PO BEDTIME 08/28/20 02/05/22 tablet,extended release omeprazole 40 mg capsule,delayed 40 mg PO DAILY 08/28/20 02/05/22 release levothyroxine 100 mcg tablet 100 mcg PO DAILY@0630 02/05/22 02/07/22 Previous Rx's Medication Instructions Recorded dextroamphetamine-amphetamine 15 15 mg PO BID #60 tab 09/26/20 mg tablet (Adderall) cyanocobalamin (vitamin B-12) 1,000 mcg IM Q7D #10 ml 02/11/22 1,000 mcg/mL injection solution nicotine 21 mg/24 hr daily 21 mg TRANSDERMAL DAILY #28 ea 02/11/22 transdermal patch Mental Status Exam Mental Status Exam Narrative: Appearance: casually groomed, fair hygiene in NAD Behavior:cooperative psychomotor: no agitation or retardation noted Speech:clear, normal rate/rhythm/volume, spontaneous Thought process:linear Thought content:no signs of psychosis, feeling anxious but better Mood: better Affect: congruent, brighter SI:denies HI:none VH/AH:none Delusions:none Insight/judgment:fair x 2. Memory/cog: alert, oriented x 3. grossly intact to conversational testing but not formally tested. Data Data Completed and Pending Completed studies during hospitalization [Text1]: 02/05/22 02/05/22 02/06/22 11:24 13:23 14:16 WBC RBC Hgb Hct MCV MCH MCHC RDW Plt Count MPV Immature Gran % (Auto) Neut % (Auto) Lymph % (Auto) [place] % (Auto) Eos % (Auto) Baso % (Auto) Lymph # (Auto) [place] # (Auto) Eos # (Auto) Baso # (Auto) Abs Immat Gran (auto) Absolute Neuts (auto) Absolute Nucleated RBC Nucleated RBC % (auto) Sodium Potassium Chloride Carbon Dioxide Anion Gap BUN Creatinine Estim Creat Clear Calc Estimated GFR Random Glucose Estimat Average Glucose Hemoglobin A1c % Calcium Total Bilirubin AST ALT Alkaline Phosphatase Total Protein Albumin Triglycerides Cholesterol LDL Cholesterol, Calc HDL Cholesterol Vitamin B12 Folate TSH Urine Opiates Screen Not Detected Urine Fentanyl Screen Not Detected Ur Barbiturates Screen Not Detected Ur Phencyclidine Scrn Not Detected Ur Amphetamines Screen POSITIVE H U Benzodiazepines Scrn POSITIVE H [place] Urine Cocaine Screen Not Detected U Marijuana (THC) Screen Not Detected COVID-19 (GORDY) Negative Negative COVID-19 Clin Com See Note See Note 02/06/22 02/06/22 02/06/22 14:23 15:57 15:57 WBC 6.9 RBC 4.60 Hgb 14.7 Hct 43.7 MCV 95.0 MCH 32.0 MCHC 33.6 RDW 12.2 Plt Count 330 MPV 10.1 Immature Gran % (Auto) 0.4 Neut % (Auto) 59.0 Lymph % (Auto) 27.5 [place] % (Auto) 6.5 Eos % (Auto) 5.3 H Baso % (Auto) 1.3 Lymph # (Auto) 1.9 [place] # (Auto) 0.5 Eos # (Auto) 0.4 Baso # (Auto) 0.1 Abs Immat Gran (auto) 0.03 Absolute Neuts (auto) 4.1 Absolute Nucleated RBC 0.000 Nucleated RBC % (auto) 0.0 Sodium 138 Potassium 4.2 Chloride 104 Carbon Dioxide 27 Anion Gap 11 L BUN 12 Creatinine 0.78 Estim Creat Clear Calc 67.4 Estimated GFR > 60 Random Glucose 85 Estimat Average Glucose Hemoglobin A1c % Calcium 9.6 Total Bilirubin 0.4 AST 22 ALT 20 Alkaline Phosphatase 65 D Total Protein 7.5 Albumin 4.3 Triglycerides Cholesterol LDL Cholesterol, Calc HDL Cholesterol Vitamin B12 230 Folate 5.5 TSH Urine Opiates Screen Urine Fentanyl Screen Ur Barbiturates Screen Ur Phencyclidine Scrn Ur Amphetamines Screen U Benzodiazepines Scrn [place] Urine Cocaine Screen U Marijuana (THC) Screen COVID-19 (GORDY) COVID-19 [place] Com 02/06/22 02/06/22 02/07/22 15:57 15:57 08:23 WBC RBC Hgb Hct MCV MCH MCHC RDW Plt Count MPV Immature Gran % (Auto) Neut % (Auto) Lymph % (Auto) [place] % (Auto) Eos % (Auto) Baso % (Auto) Lymph # (Auto) [place] # (Auto) Eos # (Auto) Baso # (Auto) Abs Immat Gran (auto) Absolute Neuts (auto) Absolute Nucleated RBC Nucleated RBC % (auto) Sodium Potassium Chloride Carbon Dioxide Anion Gap BUN Creatinine Estim Creat Clear Calc Estimated GFR Random Glucose Estimat Average Glucose Hemoglobin A1c % Calcium Total Bilirubin AST ALT Alkaline Phosphatase Total Protein Albumin Triglycerides 91 Cholesterol 142 LDL Cholesterol, Calc 87 HDL Cholesterol 37 Vitamin B12 Folate TSH 1.22 Urine Opiates Screen Urine Fentanyl Screen Ur Barbiturates Screen Ur Phencyclidine Scrn Ur Amphetamines Screen U Benzodiazepines Scrn [place] 0.27 L Urine Cocaine Screen U Marijuana (THC) Screen COVID-19 (GORDY) COVID-19 [place] 02/07/22 02/09/22 08:24 05:35 WBC RBC Hgb Hct MCV MCH MCHC RDW Plt Count MPV Immature Gran % (Auto) Neut % (Auto) Lymph % (Auto) [place] % (Auto) Eos % (Auto) Baso % (Auto) Lymph # (Auto) [place] # (Auto) Eos # (Auto) Baso # (Auto) Abs Immat Gran (auto) Absolute Neuts (auto) Absolute Nucleated RBC Nucleated RBC % (auto) Sodium Potassium Chloride Carbon Dioxide Anion Gap BUN Creatinine Estim Creat Clear Calc Estimated GFR Random Glucose Estimat Average Glucose 94 Hemoglobin A1c % 4.9 Calcium Total Bilirubin AST ALT Alkaline Phosphatase Total Protein Albumin Triglycerides Cholesterol LDL Cholesterol, Calc HDL Cholesterol Vitamin B12 Folate TSH 0.51 Urine Opiates Screen Urine Fentanyl Screen Ur Barbiturates Screen Ur Phencyclidine Scrn Ur Amphetamines Screen U Benzodiazepines Scrn [place] Urine Cocaine Screen U Marijuana (THC) Screen COVID-19 (GORDY) COVID-19 [place] Com DS: Summary Hospital Course Hospital Course: Subjective Notes: Conditional Voluntary and 3 Day Narrative: Ms. Mandujano is a 56 year-old woman with hx of Bipolar type 2 disorder, PTSD who self presented to [facility] ED reporting increased panic attacks, depression, suicidal ideation with plan to OD. In the ED her utox was positive for amphetamines (currently prescribed adderall) and benzodiazepine (currently prescribed clonazepam). On the unit, Ms. Mandujano has episodes of tearfulness. Pt reports multiple stressors have added up recently including loss of paternal uncle, strssors related to relationship with current partner, along with increase triggers and memories of past trauma as a child and adult. Ms. Mandujano reports increased anxious mood, panic attacks almost daily, hopeless/helpless at times. No hx of p sychosis. She reports brief periods of increase energy and irritability, which over the years realized were more hypomanic episodes than depressed mood. She reports several past medication trials- reports cymbalta has been best antidepressant for her but not higher doses than 60mg po daily as it increases symptoms of hypomania. She has also been on lithium, which reports helps mood tremendously but also prefers taking on lower side of dose. Past Psychiatric History: In Pt: 5 admissions PHP: 7 admissions OP: Dr. Hwang HOSPITAL COURSE On the unit, pt was admitted on CV and placed on 15 minutes checks for safety. Pt presented as tearful, reporting increased anxious mood in past 2 weeks. After discussing risks, benefits and alternative treatment options, pt reports she has had multiple medication trials in the past and current combination of medications has been most helpful. Pt reports best antidepressant she has been on is cymbalta but higher doses trigger hypomanic episode. Current dose of lithium although on lower end, pt reports helpful. She denied SI/HI. Her b12 was in lower side, initiated cyanocobalamin 1000mcg IM. She was advised to stop, even temporarily adderall to decrease anxious mood, which she agreed with. She was visible in the unit, social with select peers. She denied SI/HI. No signs of aggression towards self or others. There were no incidences of disruptive behaviors nor use of restraints. She agreed to continue OP psychiatric treatment with care home providers. We discussed considering prazosin for anxiety/nightmares, pt will discuss with OP providers. Time spent discussing smoking cessation with patient: 3 to 10 minutes Status at Discharge Cognitive/behavioral status at discharge: Pt with brighter affect, not labile. No SI/HI. No VH/AH. Less anxious. No delusional content reported or noted. No signs of aggression towards self or others. Functional status at discharge: independent ambulation Overall status at discharge: patient is progressing back to baseline Time Spent with Patient Time attestation: Total time spent providing and/or coordinating discharge services: Time spent: Greater than 30 minutes Discharge Plan Discharge Patient Disposition: Home, Self-Care Discharge Diagnosis: Bipolar type 2 PTSD Referrals: BLANCHE HWANG [Other] - 1 Week (TELEHEALTH) BRADEN SANFORD [Other] - 02/17/22 1:30 pm (TELEHEALTH) Sanjuanita Matthews MD [Primary Care Provider] - 03/13/22 11:45 am Discharge Medications: New nicotine 21 mg/24 hr Patch 24 Hour 21 mg transdermal DAILY Qty: 28 0RF cyanocobalamin (vitamin B-12) 1,000 mcg/mL Solution 1,000 mcg IM Q7D Qty: 10 0RF Continued clonazepam 1 mg Tablet 1 mg PO BID PRN (Reason: Anxiety) 0RF omeprazole 40 mg Capsule,Delayed Release(Dr/Ec) 40 mg PO DAILY 0RF Label Comments: Per pharmacy last filled May for 3 month supply ferrous sulfate 325 mg (65 mg iron) Tablet 325 mg PO BEDTIME 0RF duloxetine 60 mg Capsule,Delayed Release(Dr/Ec) 60 mg PO DAILY 0RF diclofenac sodium 1 % Gel 2 g TOPICAL QID PRN (Reason: Pain) 0RF Label Comments: Pt stated she gets OTC cholecalciferol (vitamin D3) 50 mcg (2,000 unit) Capsule 50 mcg PO DAILY 0RF Label Comments: Last filled 08/09 90 day supply lithium carbonate 300 mg Tablet Extended Release 600 mg PO BEDTIME 0RF Label Comments: Per pharmacy last filled August 19, 2020 for 1 month supply. dextroamphetamine-amphetamine [Adderall] 15 mg tablet 15 mg PO BID Qty: 60 0RF Rx Instructions: please change to am and afternoon administer doses at least 4-6 hours apart levothyroxine 100 mcg Tablet 100 mcg PO DAILY@0630 0RF Discharge Orders: Discharge Order (Routine); Ordered 02/11/22 Ordered By: Silvia Tucker Diet: regular diet Activity on Discharge: As tolerated Stand Alone Forms: Patient Portal Discharge page Care Plan Goals: 1. Maintain mood 2. No SI/HI 3. Less anxiety, less depressed mood Health Concerns: Follow up with PCP Plan of Treatment: 1. Take medications as prescribed. 2. go to nearest ED or call 911 in event of emergency. Assessment: Pt with brighter affect, non labile. no signs of psychosis. No delusional content reported or noted. No SI/HI. Future oriented in that she is looking forward to return to her home with significant other. No signs of aggression towards self or others.
--- NOTE | 2022-02-11 10:29 | PC.NURSE ---
Patient is alert, fully oriented, pleasant and cooperative with discharge process. She denies ideation, plan or intent to harm self or others. She denies perceptual disturbance. Susana reports good sleep, good appetite and focus is notably good as well. She verbalizes understanding of prescribed medications and upcoming appointments. She denies physical complaint. [ End ]
== END 2022-02-11 11:34 | disposition home or self-care (01) | DRG 885 ==
LOC: HO.ED 02-06 12:34 → HO.PADLT16 02-06 15:19
PROVIDERS: Psychiatry & Neurology Psychiatry; Student in an Organized Health Care Education/Training Program; Admitting Provider Psychiatry & Neurology Psychiatry; Emergency Provider Emergency Medicine; PCP Family Medicine; Visit Provider Social Worker
DX: F31.81 Bipolar II disorder (principal); R45.851 Suicidal ideations; E03.9 Hypothyroidism, unspecified; G89.4 Chronic pain syndrome; F43.12 Post-traumatic stress disorder, chronic; F17.210 Nicotine dependence, cigarettes, uncomplicated; Z71.6 Tobacco abuse counseling; Z88.2 Allergy status to sulfonamides; Z88.5 Allergy status to narcotic agent; Z88.6 Allergy status to analgesic agent; Z79.890 Hormone replacement therapy; Z79.899 Other long term (current) drug therapy
CPT/HCPCS: 36415; 80053; 80061; 80178; 80307; 82607; 82746; 83036; 84443; 85025; 87635; 93005; 99285

== ENCOUNTER 2022-05-13 17:47 | Inpatient (IN) | payer OTHER, SELFPAY ==
[2022-05-13 18:23] VITALS: BP 106/70; PULSE 85; RESP 18; TEMP 36.2; O2SAT 97; BMI 21.2
--- NOTE | 2022-05-13 21:32 | ED.PSYCH ---
HPI - Psych General Chief Complaint: Psychiatric Symptoms <Lamonte Rascon MD - Last Filed: 05/14/22 02:29> Stated Complaint: Crisis Not Taking Meds <Lamonte Rascon MD - Last Filed: 05/14/22 02:29> Time Seen by Provider: 05/13/22 21:17 <Lamonte Rascon MD - Last Filed: 05/14/22 02:29> Source: patient <Lamonte Rascon MD - Last Filed: 05/14/22 02:29> Mode of arrival: ambulatory <Lamonte Rascon MD - Last Filed: 05/14/22 02:29> Limitations: no limitations <Lamonte Rascon MD - Last Filed: 05/14/22 02:29> History of Present Illness HPI Narrative: 56-year-old female who presents emergency department for evaluation anxiety, depression suicidal ideation. The patient states she was hospitalized here in January of 2022. In reviewing that record, she was admitted on a see for increased anxiety, anxious mood . She states that she was discharged on new medications which she believes just made her more anxious she has not been taking these medications for the last 3 weeks. She states that she has had increased anxiety increased depression over the last 3 weeks without identifying a specific trigger. She states she has also been having suicidal ideation for 3 weeks. She told nursing staff that she has a plan but does not want to share the plan with us at this time. Patient states she did try to harm herself by intentionally overdosing 1 time in the past 5 years. States she has had insomnia. She has had an increased appetite. She states she has gained weight over the past several weeks. The patient does have significant dental caries in her lower jaw and she states that a week and a half ago she was having pain and she took 4 days of amoxicillin which improved her pain but she still having difficulty chewing secondary to her dental pain. She did stop her psychiatric medications but she states she has been compliant with her other medications. Patient also states that she has been having constant tinnitus with occasional dizziness and no change in her hearing over the past 3 weeks. <Lamonte Rascon MD - Last Filed: 05/14/22 02:29> MD complaint: suicidal ideation, feels depressed and anxiety <Lmaonte Rascon MD - Last Filed: 05/14/22 02:29> Onset (ago): week(s) (3) <Lamonte Rascon MD - Last Filed: 05/14/22 02:29> Duration: constant <Lamonte Rascon MD - Last Filed: 05/14/22 02:29> History of same: Yes <Lamonte Rascon MD - Last Filed: 05/14/22 02:29> Relieving factors: none <Lamonte Rascon MD - Last Filed: 05/14/22 02:29> Exacerbating factors: none <Lamonte Rascon MD - Last Filed: 05/14/22 02:29> Context: not taking psychiatric medications (. Medications 3 weeks prior) <Lamonte Rascon MD - Last Filed: 05/14/22 02:29> Associated psychiatric symptoms: depression and suicidal ideation <Lamonte Rascon MD - Last Filed: 05/14/22 02:29> Associated symptoms: other (Dental pain, tinnitus, occasional dizziness with no change in hearing) <Lamonte Rascon MD - Last Filed: 05/14/22 02:29> Treatments prior to arrival: none <Lamonte Rascon MD - Last Filed: 05/14/22 02:29> If self harm: admits thoughts of self harm and has plan (Patient does not want to share the plan with this at this time) <Lamonte Rascon MD - Last Filed: 05/14/22 02:29> Related Data Home Medications: Home Medications Medication Instructions Recorded Confirmed cholecalciferol (vitamin D3) 50 1 tab PO DAILY 05/13/22 05/13/22 mcg (2,000 unit) tablet (Vitamin D3) duloxetine 60 mg capsule,delayed 1 cap PO DAILY 05/13/22 05/13/22 release hydroxyzine HCl 10 mg tablet 2 tab PO QID 05/13/22 05/13/22 levothyroxine 100 mcg tablet 1 tab PO DAILY 05/13/22 05/13/22 propranolol 10 mg tablet 1 - 2 tab PO TID 05/13/22 05/13/22 <Lamonte Rascon MD - Last Filed: 05/14/22 02:29> Allergies/Adverse Reactions: Allergies Allergy/AdvReac Type Severity Reaction Status Date / Time meperidine [From Demerol] Allergy Intermediate Itching Verified 05/13/22 18:22 NSAIDS (Non-Steroidal Allergy Intermediate GI UPSET/ Verified 05/13/22 18:22 Anti-Inflamma COFFEE [NSAIDS (NON-STEROIDAL GROUND ANTI-INFLAMMA] EMESIS Sulfa (Sulfonamide Allergy Intermediate SWELLING Verified 05/13/22 18:22 Antibiotics) OF FACE [SULFA (SULFONAMIDE HANDS, AND ANTIBIOTICS)] FEET <Lamonte Rascon MD - Last Filed: 05/14/22 02:29> Review of Systems Review of Systems: Yes all other systems are reviewed and are negative <Lamonte Rascon MD - Last Filed: 05/14/22 02:29> PMFSH Past Medical History Medical History: Medical History ADHD Anemia Bipolar disorder Chronic back pain Chronic pain syndrome Dermoid cyst Disc degeneration, lumbar Hx of endometriosis Hypothyroidism Iliotibial band syndrome affecting right lower leg Insomnia Osteoarthritis PUD (peptic ulcer disease) Sacroiliac joint dysfunction of left side Sacroiliac joint dysfunction of right side Sacroiliitis, not elsewhere classified Spondylosis without myelopathy or radiculopathy, lumbar region Subarachnoid bleed <Lamonte Rascon MD - Last Filed: 05/14/22 02:29> Surgical History: Surgical History History of surgery History of surgery Hx of section <Lamonte Rascon MD - Last Filed: 05/14/22 02:29> Social History Social History: Social History Household Members: Significant Other Housing: Apartment Do you presently have visiting nurse or other home services: No Alcohol intake: never Patient Tobacco Use Status: Current everyday Tobacco user Tobacco use type: Cigarette Cigarette Packs Per Day: 1 Cigarettes Per Day: 20.0 Years Smoked: 40 e-Cigarette/Vaping Use: Never Used Second Hand Smoke Exposure: Yes Substance Use Type: Marijuana Advance Directives: No Advance Directives Information Provided: No service: Yes ([employer] for 18 years) Sexual orientation: Did not discuss. <Lamonte Rascon MD - Last Filed: 05/14/22 02:29> Physical Exam Vital Signs: Vital Signs: Last Vital Signs Temp 97.3 F 05/14/22 02:15 Pulse 70 05/14/22 02:15 Resp 16 05/14/22 02:15 BP 110/70 05/14/22 02:15 Pulse Ox 98 05/14/22 02:15 O2 Del Method 05/14/22 02:15 BMI result Body Mass Index 21.2 <Lamonte Rascon MD - Last Filed: 05/14/22 02:29> Vital Signs: Last Vital Signs Temp 97.3 F 05/14/22 02:15 Pulse 70 05/14/22 02:15 Resp 16 05/14/22 02:15 BP 110/70 05/14/22 02:15 Pulse Ox 98 05/14/22 02:15 O2 Del Method 05/14/22 02:15 BMI result Body Mass Index 21.2 <Chelsea Cortes MD - Last Filed: 05/14/22 11:32> Const: General: cooperative and no acute distress <Lamonte Rascon MD - Last Filed: 05/14/22 02:29> Orientation/consciousness: oriented to person and oriented to place <Lamonte Rascon MD - Last Filed: 05/14/22 02:29> Limitations: no limitations <Lamonte Rascon MD - Last Filed: 05/14/22 02:29> HEENT: Head: Yes normal to inspection, Yes normocephalic and Yes atraumatic <Lamonte Rascon MD - Last Filed: 05/14/22 02:29> Ears: external ears normal <Lamonte Rascon MD - Last Filed: 05/14/22 02:29> General nose exam: Normal external nose present <Lamonte Rascon MD - Last Filed: 05/14/22 02:29> Face and sinus: Yes normal facial exam <Lamonte Rascon MD - Last Filed: 05/14/22 02:29> Mouth: Normal oral and palatal mucosa present <MD Henry Calvin Last Filed: 05/14/22 02:29> Teeth and gingiva: gingiva normal and caries (Significant dental caries of the lower teeth with no gingival swelling) <MD Henry Calvin Last Filed: 05/14/22 02:29> Throat: Yes posterior oropharynx normal <MD Henry Calvin Last Filed: 05/14/22 02:29> Eyes: General: appearance normal, both eyes and all related structures <MD Henry Calvin Last Filed: 05/14/22 02:29> Pupils: Equal, round and reactive pupils present <MD Henry Calvin Last Filed: 05/14/22 02:29> Neck: Neck: Yes normal visual inspection, Yes no lymphadenopathy, Yes trachea midline and Yes supple <MD Henry Calvin Last Filed: 05/14/22 02:29> Chest: Chest palpation & inspection: normal inspection of the chest and normal palpation of entire chest wall <MD Henry Calvin Last Filed: 05/14/22 02:29> Resp: Effort & Inspection: normal respiratory effort and able to speak in complete sentences <MD Henry Calvin Last Filed: 05/14/22 02:29> Auscultation: clear to auscultation bilaterally <MD Henry Calvin Last Filed: 05/14/22 02:29> Cardio: Rate: regular rate <MD Henry Calvin Last Filed: 05/14/22 02:29> Rhythm: regular rhythm <MD Henry Calvin Last Filed: 05/14/22 02:29> Heart sounds: S1 normal heart sound present, S2 normal heart sound present and no murmurs <MD Henry Calvin Last Filed: 05/14/22 02:29> GI: Inspection: Yes normal to inspection <MD Henry Calvin Last Filed: 05/14/22 02:29> Palpation (GI): Soft to palpation, nontender and no guarding <Lamonte Rascon MD - Last Filed: 05/14/22 02:29> Auscultation: normal bowel sounds <Lamonte Rascon MD - Last Filed: 05/14/22 02:29> : General: Yes no CVA tenderness <Lamonte Rascon MD - Last Filed: 05/14/22 02:29> Back/Spine/Pelvis: Back: no CVA tenderness <Lamonte Rascon MD - Last Filed: 05/14/22 02:29> Skin: General skin exam: no rashes or lesions noted <Lamonte Rascon MD - Last Filed: 05/14/22 02:29> Neuro: General: oriented to person and oriented to place <Lamonte Rascon MD - Last Filed: 05/14/22 02:29> Cranial nerves: Yes CN's II-XII intact bilaterally and Yes Equal, round and reactive pupils present <Lamonte Rascon MD - Last Filed: 05/14/22 02:29> Cognition (Neuro): normal cognition <Lamonte Rascon MD - Last Filed: 05/14/22 02:29> Motor exam (neuro): 5/5 motor strength present throughout <Lamonte Rascon MD - Last Filed: 05/14/22 02:29> Extrem: General: Yes normal to inspection <Lamonte Rascon MD - Last Filed: 05/14/22 02:29> Psych: Appearance: grossly normal <Lamonte Rascon MD - Last Filed: 05/14/22 02:29> Speech and movement: Normal speech and movement present <Lamonte Rascon MD - Last Filed: 05/14/22 02:29> Affect: normal affect <Lamonte Rascon MD - Last Filed: 05/14/22 02:29> Attitude: cooperative <Lamonte Rascon MD - Last Filed: 05/14/22 02:29> Thought process: Normal thought process present <MD Henry Calvin Last Filed: 05/14/22 02:29> Thought content: Suicidality present <Lamonte Rascon MD - Last Filed: 05/14/22 02:29> Course Course Course Narrative: 56-year-old female with a history of bipolar disorder PTSD who presents emergency department for evaluation of 3 weeks of increased depression, increased anxiety and suicidal ideation with a plan. The patient states she stopped her psychiatric medicines 3 weeks prior since she believes that these medications were making her more anxious. She has been compliant with her other medications. The patient states that she is suicidal and has a plan but does not want assure the plan with this at this time. She has had insomnia but with a good appetite and weight gain. She did talk to her psychiatrist today who referred her to the emergency department for evaluation. Patient has been experiencing lower jaw dental pain secondary to significant dental caries but I do not think she has an infection at this time. She has also had tinnitus associated with dizziness over the past 3 weeks as well. Patient's vital signs were unremarkable. Physical examination did reveal dental caries but I do not think that she has infection at this time. I did order laboratory evaluation to include a CBC, CMP, salicylate, acetaminophen, TSH with reflex T4, B12, ETOH level and urine drug screen. 0225: Laboratory evaluation: CBC, CMP were normal. TSH was normal. B12 was pending. Urinalysis revealed 2+ leukocyte esterase. Microscopic revealed 1-4 RBCs, 1-4 WBCs, 1+ squamous cells, 2+ bacteria-this is not a clean-catch specimen I do not think that she has UTI this time, will treat only if the culture is positive. The patient was seen by N. The consult felt that the patient was not actively suicidal however patient was referred here to the emergency department by her psychiatrist to be admitted further management and to restart her medications. The patient will be a voluntary bed search. 0225: Start physician observation: Patient will be placed in physician observation until an appropriate psychiatric bed can be obtained for this patient. The patient is calm and cooperative in her examination is unchanged from her baseline, lungs clear, heart regular rate rhythm, abdomen soft nontender, neurologic exam nonfocal. <Lamonte Rascon MD - Last Filed: 05/14/22 02:29> Reevaluation(s) Reevaluation #1: Patient had an uneventful night, vitals are stable. Patient does not have any UTI symptoms. The urinalysis obtained earlier today seems to be a contaminant. At this time, UTI treatment not needed. Patient continues being a voluntary bed search <Chelsea Cortes MD - Last Filed: 05/14/22 11:32> Time: 07:10 <Chelsea Cortes MD - Last Filed: 05/14/22 11:32> Reevaluation #2: [facility] evaluated the patient, bed search continues. <Chelsea Cortes MD - Last Filed: 05/14/22 11:32> Time: 11:32 <Chelsea Cortes MD - Last Filed: 05/14/22 11:32> MDM - Psych Lab Data Result diagrams: : 05/13/22 22:21 05/13/22 22:21 <Lamonte Rascon MD - Last Filed: 05/14/22 02:29> Labs: Lab Results 05/13/22 05/13/22 05/13/22 Range/Units 22:21 22:21 22:21 WBC 7.1 (4.8-10.8) X10*3/uL RBC 4.26 (4.20-5.50) X10*6/uL Hgb 13.6 (12.0-16.0) g/dl Hct 40.4 (37.0-47.0) % MCV 94.8 (80.0-98.0) fL MCH 31.9 (27.0-33.0) pg MCHC 33.7 (31.0-35.0) g/dl RDW 12.2 (11.0-16.0) % Plt Count 253 (160-400) X10*3/uL MPV 9.7 (9.4-12.3) fL Immature Gran % (Auto) 0.1 (0.0-0.4) % Neut % (Auto) 69.6 (45-73) % Lymph % (Auto) 21.5 (20-40) % [place] % (Auto) 4.6 (2-11) % Eos % (Auto) 3.4 (0-4) % Baso % (Auto) 0.8 (0-2) % Lymph # (Auto) 1.5 (1.2-4.9) X10*3/uL [place] # (Auto) 0.3 (0.1-1.2) X10*3/uL Eos # (Auto) 0.2 (0.0-0.4) X10*3/uL Baso # (Auto) 0.1 (0.0-0.2) X10*3/uL Abs Immat Gran (auto) 0.01 (0.00-0.03) X10*3/uL Absolute Neuts (auto) 4.9 (2.0-8.3) x10*3/uL Absolute Nucleated RBC 0.000 (0.0-0.012) X10*3/uL Nucleated RBC % (auto) 0.0 (0.0-0.2) /100WBC Sodium 140 (135-145) mmol/L Potassium 3.7 (3.3-5.1) mmol/L Chloride 106 (96-108) mmol/L Carbon Dioxide 28 (22-29) mmol/L Anion Gap 10 L (12-20) BUN 12 (9-16) mg/dL Creatinine 0.73 (0.5-1.4) mg/dL Estim Creat Clear Calc 72.0 Estimated GFR > 60 Random Glucose 111 (60-115) mg/dL Calcium 8.8 D (8.4-10.2) mg/dL Total Bilirubin 0.2 (0.0-1.0) mg/dL AST 23 (5-31) U/L ALT 31 (0-31) U/L Alkaline Phosphatase 67 (39-117) U/L Total Protein 6.6 (6.5-8.0) g/dL Albumin 3.9 (3.5-5.0) g/dL Vitamin B12 531 (200-900) pg/mL TSH (0.32-4.0) uIU/mL Urine Color Urine Appearance Urine pH (5.0-8.0) Ur Specific Taylor (1.005-1.025) Urine Protein (NEG-TRACE) MG/DL Urine Glucose (UA) (NEG) MG/DL Urine Ketones (NEG) MG/DL Urine Blood (NEG) Urine Nitrite (NEG) Ur Leukocyte Esterase (NEG) Urine RBC (0) /HPF Urine WBC (0-4) /HPF Ur Squamous Epith Cells /LPF Urine Bacteria /LPF Urine Mucus /LPF Salicylates (15-30) mg/dL Urine Opiates Screen (Not Detect) Urine Fentanyl Screen (Not Detect) Acetaminophen (<30) mcg/mL Ur Barbiturates Screen (Not Detect) Ur Phencyclidine Scrn (Not Detect) Ur Amphetamines Screen (Not Detect) U Benzodiazepines Scrn (Not Detect) Urine Cocaine Screen (Not Detect) U Marijuana (THC) Screen (Not Detect) Ethyl Alcohol < 10 mg/dL COVID-19 (GORDY) (Negative) COVID-19 Clin Com 05/13/22 05/13/22 05/13/22 Range/Units 22:21 22:21 22:21 WBC (4.8-10.8) X10*3/uL RBC (4.20-5.50) X10*6/uL Hgb (12.0-16.0) g/dl Hct (37.0-47.0) % MCV (80.0-98.0) fL MCH (27.0-33.0) pg MCHC (31.0-35.0) g/dl RDW (11.0-16.0) % Plt Count (160-400) X10*3/uL MPV (9.4-12.3) fL Immature Gran % (Auto) (0.0-0.4) % Neut % (Auto) (45-73) % Lymph % (Auto) (20-40) % [place] % (Auto) (2-11) % Eos % (Auto) (0-4) % Baso % (Auto) (0-2) % Lymph # (Auto) (1.2-4.9) X10*3/uL [place] # (Auto) (0.1-1.2) X10*3/uL Eos # (Auto) (0.0-0.4) X10*3/uL Baso # (Auto) (0.0-0.2) X10*3/uL Abs Immat Gran (auto) (0.00-0.03) X10*3/uL Absolute Neuts (auto) (2.0-8.3) x10*3/uL Absolute Nucleated RBC (0.0-0.012) X10*3/uL Nucleated RBC % (auto) (0.0-0.2) /100WBC Sodium (135-145) mmol/L Potassium (3.3-5.1) mmol/L Chloride (96-108) mmol/L Carbon Dioxide (22-29) mmol/L Anion Gap (12-20) BUN (9-16) mg/dL Creatinine (0.5-1.4) mg/dL Estim Creat Clear Calc Estimated GFR Random Glucose (60-115) mg/dL Calcium (8.4-10.2) mg/dL Total Bilirubin (0.0-1.0) mg/dL AST (5-31) U/L ALT (0-31) U/L Alkaline Phosphatase (39-117) U/L Total Protein (6.5-8.0) g/dL Albumin (3.5-5.0) g/dL Vitamin B12 (200-900) pg/mL TSH 3.25 (0.32-4.0) uIU/mL Urine Color Urine Appearance Urine pH (5.0-8.0) Ur Specific [place] (1.005-1.025) Urine Protein (NEG-TRACE) MG/DL Urine Glucose (UA) (NEG) MG/DL Urine Ketones (NEG) MG/DL Urine Blood (NEG) Urine Nitrite (NEG) Ur Leukocyte Esterase (NEG) Urine RBC (0) /HPF Urine WBC (0-4) /HPF Ur Squamous Epith Cells /LPF Urine Bacteria /LPF Urine Mucus /LPF Salicylates < 5.0 L (15-30) mg/dL Urine Opiates Screen (Not Detect) Urine Fentanyl Screen (Not Detect) Acetaminophen < 1 (<30) mcg/mL Ur Barbiturates Screen (Not Detect) Ur Phencyclidine Scrn (Not Detect) Ur Amphetamines Screen (Not Detect) U Benzodiazepines Scrn (Not Detect) Urine Cocaine Screen (Not Detect) U Marijuana (THC) Screen (Not Detect) Ethyl Alcohol mg/dL COVID-19 (GORDY) Negative (Negative) COVID-19 Clin Com See Note 05/14/22 05/14/22 Range/Units 00:00 00:00 WBC (4.8-10.8) X10*3/uL RBC (4.20-5.50) X10*6/uL Hgb (12.0-16.0) g/dl Hct (37.0-47.0) % MCV (80.0-98.0) fL MCH (27.0-33.0) pg MCHC (31.0-35.0) g/dl RDW (11.0-16.0) % Plt Count (160-400) X10*3/uL MPV (9.4-12.3) fL Immature Gran % (Auto) (0.0-0.4) % Neut % (Auto) (45-73) % Lymph % (Auto) (20-40) % [place] % (Auto) (2-11) % Eos % (Auto) (0-4) % Baso % (Auto) (0-2) % Lymph # (Auto) (1.2-4.9) X10*3/uL [place] # (Auto) (0.1-1.2) X10*3/uL Eos # (Auto) (0.0-0.4) X10*3/uL Baso # (Auto) (0.0-0.2) X10*3/uL Abs Immat Gran (auto) (0.00-0.03) X10*3/uL Absolute Neuts (auto) (2.0-8.3) x10*3/uL Absolute Nucleated RBC (0.0-0.012) X10*3/uL Nucleated RBC % (auto) (0.0-0.2) /100WBC Sodium (135-145) mmol/L Potassium (3.3-5.1) mmol/L Chloride (96-108) mmol/L Carbon Dioxide (22-29) mmol/L Anion Gap (12-20) BUN (9-16) mg/dL Creatinine (0.5-1.4) mg/dL Estim Creat Clear Calc Estimated GFR Random Glucose (60-115) mg/dL Calcium (8.4-10.2) mg/dL Total Bilirubin (0.0-1.0) mg/dL AST (5-31) U/L ALT (0-31) U/L Alkaline Phosphatase (39-117) U/L Total Protein (6.5-8.0) g/dL Albumin (3.5-5.0) g/dL Vitamin B12 (200-900) pg/mL TSH (0.32-4.0) uIU/mL Urine Color YELLOW Urine Appearance CLEAR Urine pH 6.0 (5.0-8.0) Ur Specific [place] 1.025 (1.005-1.025) Urine Protein NEG (NEG-TRACE) MG/DL Urine Glucose (UA) NEG (NEG) MG/DL Urine Ketones NEG (NEG) MG/DL Urine Blood TRACE (NEG) Urine Nitrite NEG (NEG) Ur Leukocyte Esterase 2+ H (NEG) Urine RBC 1-4 (0) /HPF Urine WBC 1-4 (0-4) /HPF Ur Squamous Epith Cells 1+ /LPF Urine Bacteria 2+ /LPF Urine Mucus 1+ /LPF Salicylates (15-30) mg/dL Urine Opiates Screen Not Detected (Not Detect) Urine Fentanyl Screen Not Detected (Not Detect) Acetaminophen (<30) mcg/mL Ur Barbiturates Screen Not Detected (Not Detect) Ur Phencyclidine Scrn Not Detected (Not Detect) Ur Amphetamines Screen Not Detected (Not Detect) U Benzodiazepines Scrn Not Detected (Not Detect) Urine Cocaine Screen Not Detected (Not Detect) U Marijuana (THC) Screen Not Detected (Not Detect) Ethyl Alcohol mg/dL COVID-19 (GORDY) (Negative) COVID-19 Clin Com <Lamonte Rascon MD - Last Filed: 05/14/22 02:29> Lab Results 05/13/22 05/13/22 05/13/22 Range/Units 22:21 22:21 22:21 WBC 7.1 (4.8-10.8) X10*3/uL RBC 4.26 (4.20-5.50) X10*6/uL Hgb 13.6 (12.0-16.0) g/dl Hct 40.4 (37.0-47.0) % MCV 94.8 (80.0-98.0) fL MCH 31.9 (27.0-33.0) pg MCHC 33.7 (31.0-35.0) g/dl RDW 12.2 (11.0-16.0) % Plt Count 253 (160-400) X10*3/uL MPV 9.7 (9.4-12.3) fL Immature Gran % (Auto) 0.1 (0.0-0.4) % Neut % (Auto) 69.6 (45-73) % Lymph % (Auto) 21.5 (20-40) % [place] % (Auto) 4.6 (2-11) % Eos % (Auto) 3.4 (0-4) % Baso % (Auto) 0.8 (0-2) % Lymph # (Auto) 1.5 (1.2-4.9) X10*3/uL [place] # (Auto) 0.3 (0.1-1.2) X10*3/uL Eos # (Auto) 0.2 (0.0-0.4) X10*3/uL Baso # (Auto) 0.1 (0.0-0.2) X10*3/uL Abs Immat Gran (auto) 0.01 (0.00-0.03) X10*3/uL Absolute Neuts (auto) 4.9 (2.0-8.3) x10*3/uL Absolute Nucleated RBC 0.000 (0.0-0.012) X10*3/uL Nucleated RBC % (auto) 0.0 (0.0-0.2) /100WBC Sodium 140 (135-145) mmol/L Potassium 3.7 (3.3-5.1) mmol/L Chloride 106 (96-108) mmol/L Carbon Dioxide 28 (22-29) mmol/L Anion Gap 10 L (12-20) BUN 12 (9-16) mg/dL Creatinine 0.73 (0.5-1.4) mg/dL Estim Creat Clear Calc 72.0 Estimated GFR > 60 Random Glucose 111 (60-115) mg/dL Calcium 8.8 D (8.4-10.2) mg/dL Total Bilirubin 0.2 (0.0-1.0) mg/dL AST 23 (5-31) U/L ALT 31 (0-31) U/L Alkaline Phosphatase 67 (39-117) U/L Total Protein 6.6 (6.5-8.0) g/dL Albumin 3.9 (3.5-5.0) g/dL Vitamin B12 531 (200-900) pg/mL TSH (0.32-4.0) uIU/mL Urine Color Urine Appearance Urine pH (5.0-8.0) Ur Specific [place] (1.005-1.025) Urine Protein (NEG-TRACE) MG/DL Urine Glucose (UA) (NEG) MG/DL Urine Ketones (NEG) MG/DL Urine Blood (NEG) Urine Nitrite (NEG) Ur Leukocyte Esterase (NEG) Urine RBC (0) /HPF Urine WBC (0-4) /HPF Ur Squamous Epith Cells /LPF Urine Bacteria /LPF Urine Mucus /LPF Salicylates (15-30) mg/dL Urine Opiates Screen (Not Detect) Urine Fentanyl Screen (Not Detect) Acetaminophen (<30) mcg/mL Ur Barbiturates Screen (Not Detect) Ur Phencyclidine Scrn (Not Detect) Ur Amphetamines Screen (Not Detect) U Benzodiazepines Scrn (Not Detect) Urine Cocaine Screen (Not Detect) U Marijuana (THC) Screen (Not Detect) Ethyl Alcohol < 10 mg/dL COVID-19 (GORDY) (Negative) COVID-19 Clin Com 05/13/22 05/13/22 05/13/22 Range/Units 22:21 22:21 22:21 WBC (4.8-10.8) X10*3/uL RBC (4.20-5.50) X10*6/uL Hgb (12.0-16.0) g/dl Hct (37.0-47.0) % MCV (80.0-98.0) fL MCH (27.0-33.0) pg MCHC (31.0-35.0) g/dl RDW (11.0-16.0) % Plt Count (160-400) X10*3/uL MPV (9.4-12.3) fL Immature Gran % (Auto) (0.0-0.4) % Neut % (Auto) (45-73) % Lymph % (Auto) (20-40) % [place] % (Auto) (2-11) % Eos % (Auto) (0-4) % Baso % (Auto) (0-2) % Lymph # (Auto) (1.2-4.9) X10*3/uL [place] # (Auto) (0.1-1.2) X10*3/uL Eos # (Auto) (0.0-0.4) X10*3/uL Baso # (Auto) (0.0-0.2) X10*3/uL Abs Immat Gran (auto) (0.00-0.03) X10*3/uL Absolute Neuts (auto) (2.0-8.3) x10*3/uL Absolute Nucleated RBC (0.0-0.012) X10*3/uL Nucleated RBC % (auto) (0.0-0.2) /100WBC Sodium (135-145) mmol/L Potassium (3.3-5.1) mmol/L Chloride (96-108) mmol/L Carbon Dioxide (22-29) mmol/L Anion Gap (12-20) BUN (9-16) mg/dL Creatinine (0.5-1.4) mg/dL Estim Creat Clear Calc Estimated GFR Random Glucose (60-115) mg/dL Calcium (8.4-10.2) mg/dL Total Bilirubin (0.0-1.0) mg/dL AST (5-31) U/L ALT (0-31) U/L Alkaline Phosphatase (39-117) U/L Total Protein (6.5-8.0) g/dL Albumin (3.5-5.0) g/dL Vitamin B12 (200-900) pg/mL TSH 3.25 (0.32-4.0) uIU/mL Urine Color Urine Appearance Urine pH (5.0-8.0) Ur Specific [place] (1.005-1.025) Urine Protein (NEG-TRACE) MG/DL Urine Glucose (UA) (NEG) MG/DL Urine Ketones (NEG) MG/DL Urine Blood (NEG) Urine Nitrite (NEG) Ur Leukocyte Esterase (NEG) Urine RBC (0) /HPF Urine WBC (0-4) /HPF Ur Squamous Epith Cells /LPF Urine Bacteria /LPF Urine Mucus /LPF Salicylates < 5.0 L (15-30) mg/dL Urine Opiates Screen (Not Detect) Urine Fentanyl Screen (Not Detect) Acetaminophen < 1 (<30) mcg/mL Ur Barbiturates Screen (Not Detect) Ur Phencyclidine Scrn (Not Detect) Ur Amphetamines Screen (Not Detect) U Benzodiazepines Scrn (Not Detect) Urine Cocaine Screen (Not Detect) U Marijuana (THC) Screen (Not Detect) Ethyl Alcohol mg/dL COVID-19 (GORDY) Negative (Negative) COVID-19 Clin Com See Note 05/14/22 05/14/22 Range/Units 00:00 00:00 WBC (4.8-10.8) X10*3/uL RBC (4.20-5.50) X10*6/uL Hgb (12.0-16.0) g/dl Hct (37.0-47.0) % MCV (80.0-98.0) fL MCH (27.0-33.0) pg MCHC (31.0-35.0) g/dl RDW (11.0-16.0) % Plt Count (160-400) X10*3/uL MPV (9.4-12.3) fL Immature Gran % (Auto) (0.0-0.4) % Neut % (Auto) (45-73) % Lymph % (Auto) (20-40) % [place] % (Auto) (2-11) % Eos % (Auto) (0-4) % Baso % (Auto) (0-2) % Lymph # (Auto) (1.2-4.9) X10*3/uL [place] # (Auto) (0.1-1.2) X10*3/uL Eos # (Auto) (0.0-0.4) X10*3/uL Baso # (Auto) (0.0-0.2) X10*3/uL Abs Immat Gran (auto) (0.00-0.03) X10*3/uL Absolute Neuts (auto) (2.0-8.3) x10*3/uL Absolute Nucleated RBC (0.0-0.012) X10*3/uL Nucleated RBC % (auto) (0.0-0.2) /100WBC Sodium (135-145) mmol/L Potassium (3.3-5.1) mmol/L Chloride (96-108) mmol/L Carbon Dioxide (22-29) mmol/L Anion Gap (12-20) BUN (9-16) mg/dL Creatinine (0.5-1.4) mg/dL Estim Creat Clear Calc Estimated GFR Random Glucose (60-115) mg/dL Calcium (8.4-10.2) mg/dL Total Bilirubin (0.0-1.0) mg/dL AST (5-31) U/L ALT (0-31) U/L Alkaline Phosphatase (39-117) U/L Total Protein (6.5-8.0) g/dL Albumin (3.5-5.0) g/dL Vitamin B12 (200-900) pg/mL TSH (0.32-4.0) uIU/mL Urine Color YELLOW Urine Appearance CLEAR Urine pH 6.0 (5.0-8.0) Ur Specific Taylor 1.025 (1.005-1.025) Urine Protein NEG (NEG-TRACE) MG/DL Urine Glucose (UA) NEG (NEG) MG/DL Urine Ketones NEG (NEG) MG/DL Urine Blood TRACE (NEG) Urine Nitrite NEG (NEG) Ur Leukocyte Esterase 2+ H (NEG) Urine RBC 1-4 (0) /HPF Urine WBC 1-4 (0-4) /HPF Ur Squamous Epith Cells 1+ /LPF Urine Bacteria 2+ /LPF Urine Mucus 1+ /LPF Salicylates (15-30) mg/dL Urine Opiates Screen Not Detected (Not Detect) Urine Fentanyl Screen Not Detected (Not Detect) Acetaminophen (<30) mcg/mL Ur Barbiturates Screen Not Detected (Not Detect) Ur Phencyclidine Scrn Not Detected (Not Detect) Ur Amphetamines Screen Not Detected (Not Detect) U Benzodiazepines Scrn Not Detected (Not Detect) Urine Cocaine Screen Not Detected (Not Detect) U Marijuana (THC) Screen Not Detected (Not Detect) Ethyl Alcohol mg/dL COVID-19 (G[facility]) (Negative) COVID-19 Clin Com <Chelsea Cortes MD - Last Filed: 05/14/22 11:32> Discharge Plan Discharge Clinical Impression: Depression, Suicidal ideation, Anxiety <Lamonte Rascon MD - Last Filed: 05/14/22 02:29> Patient Disposition: Still a Patient <Lamonte Rascon MD - Last Filed: 05/14/22 02:29> Prescriptions: No Action levothyroxine 100 mcg tablet 1 tab PO DAILY propranolol 10 mg tablet 1 - 2 tab PO TID hydroxyzine HCl 10 mg tablet 2 tab PO QID duloxetine 60 mg capsule,delayed release(DR/EC) 1 cap PO DAILY cholecalciferol (vitamin D3) [Vitamin D3] 50 mcg (2,000 unit) tablet 1 tab PO DAILY <Lamonte Rascon MD - Last Filed: 05/14/22 02:29>
[2022-05-13 22:26] LABS: MANUAL DIFF FLAG NO
[2022-05-13 22:28] LABS: Basophils Absolute Auto 0.1 X10*3/uL (0.0-0.2); Basophils Percent Auto 0.8 % (0-2); Eosinophils Absolute Auto 0.2 X10*3/uL (0.0-0.4); Eosinophils Percent Auto 3.4 % (0-4); Hematocrit 40.4 % (37.0-47.0); Hemoglobin 13.6 g/dl (12.0-16.0); Imm Gran Abs Auto 0.01 X10*3/uL (0.00-0.03); Imm Gran Pct Auto 0.1 % (0.0-0.4); Lymphocytes Absolute Auto 1.5 X10*3/uL (1.2-4.9); Lymphocytes Percent Auto 21.5 % (20-40); Mean Corpuscular HGB Conc 33.7 g/dl (31.0-35.0); Mean Corpuscular Hemoglobin 31.9 pg (27.0-33.0); Mean Corpuscular Volume 94.8 fL (80.0-98.0); Mean Platelet Volume 9.7 fL (9.4-12.3); Monocytes Absolute Auto 0.3 X10*3/uL (0.1-1.2); Monocytes Percent Auto 4.6 % (2-11); Neutrophils Absolute Auto 4.9 x10*3/uL (2.0-8.3); Neutrophils Percent Auto 69.6 % (45-73); Platelet Count 253 X10*3/uL (160-400); Red Blood Count 4.26 X10*6/uL (4.20-5.50); Red Cell Distribution Width 12.2 % (11.0-16.0); White Blood Count 7.1 X10*3/uL (4.8-10.8)
[2022-05-13 22:45] LABS: Acetaminophen LAB < 1 mcg/mL (<30); Salicylate < 5.0 mg/dL (15-30)
[2022-05-13 22:46] LABS: Alanine Aminotransferase 31 U/L (0-31); Albumin Level 3.9 g/dL (3.5-5.0); Alkaline Phosphatase 67 U/L (39-117); Anion Gap 10 (12-20); Aspartate Amino Transferase 23 U/L (5-31); Bilirubin Total 0.2 mg/dL (0.0-1.0); Blood Urea Nitrogen 12 mg/dL (9-16); COVID-19 Test Negative (Negative); Calcium 8.8 mg/dL (8.4-10.2); Carbon Dioxide 28 mmol/L (22-29); Chloride 106 mmol/L (96-108); Estimated Glomerular Filt Rate > 60; Ethanol < 10 mg/dL; Glucose Random 111 mg/dL (60-115); Potassium 3.7 mmol/L (3.3-5.1); Sodium 140 mmol/L (135-145); Total Protein 6.6 g/dL (6.5-8.0)
[2022-05-13 23:07] LABS: TSH reflex Free T4 3.25 uIU/mL (0.32-4.0)
--- NOTE | 2022-05-14 | ECG_ITS ---
Test Reason : med clearance Blood Pressure : / mmHG Vent. Rate : 062 BPM Atrial Rate : 062 BPM P-R Int : 168 ms QRS Dur : 106 ms QT Int : 418 ms P-R-T Axes : 067 -13 042 degrees QTc Int : 424 ms Normal sinus rhythm Possible Left atrial enlargement Incomplete right bundle branch block Nonspecific T wave abnormality Borderline ECG When compared with ECG of 06-FEB-2022 14:18, No significant change was found Referred By: Chelsea Cortes Electronically Signed By:SHERI ROJAS
[2022-05-14 00:09] LABS: Appearance Urine CLEAR; Color Urine YELLOW; Glucose Urine UA NEG (NEG); Leukocyte Esterase Urine 2+ (NEG); Nitrite Urine NEG (NEG); Specific Gravity - Urine 1.025 (1.005-1.025); Urine Blood TRACE (NEG); Urine Ketones NEG (NEG); Urine Protein NEG (NEG-TRACE)
[2022-05-14 00:19] LABS: Bacteria Urine 2+ /LPF; Mucus Urine 1+ /LPF; Squamous Epithelial Cell Urine 1+ /LPF
[2022-05-14 00:26] LABS: Amphetamine Screen Urine Not Detected (Not Detect); Barbiturates, Urine Not Detected (Not Detect); Benzodiazepines Screen Urine Not Detected (Not Detect); Cannabinoid Screen Urine Not Detected (Not Detect); Cocaine Screen Urine Not Detected (Not Detect); Fentanyl, urine Not Detected (Not Detect); Opiate Screen Urine Not Detected (Not Detect); Phencyclidine Screen Urine Not Detected (Not Detect)
[2022-05-14] MEDS: clonazePAM 1 MG TABLET PO ×3 (00:32→23:00)
[2022-05-14 02:15] VITALS: BP 110/70; PULSE 70; RESP 16; TEMP 36.3; O2SAT 98
--- NOTE | 2022-05-14 06:34 | PC.NURSE ---
Patient slept through the night, no distress observed/reported, at the time when got patient transferred from ED patient tearful and upset, Klonopin 1 mg PO administered at 0032 with + effect, patient well engaged with [facility] clinician, disposition per [facility] is voluntary inpatient bed search, med rec completed/pending provider's approval, patient is off her selective medication, VSS, behavior tearful and non concerning, will continue to monitor.
[2022-05-14 07:03] LABS: Vitamin B12 531 pg/mL (200-900)
--- NOTE | 2022-05-14 07:06 | PC.NURSE ---
patient appears to remain asleep at present respirations are even and unlabored patient appears in no distress
[2022-05-14] MEDS: Nicotine 21 MG PATCH.TD24 TRANSDERMA (08:11)
[2022-05-14 14:25] VITALS: BP 92/55; PULSE 82; RESP 16; TEMP 36.3; O2SAT 100
--- NOTE | 2022-05-14 18:31 | PC.NURSE ---
Addendum entered by Alexandrea Young RN 05/14/22 18:37: UDS negative all substances. Original Note: Pt is COVID-negative, 56-year-old female who comes from the ED where she presented with increased anxiety and depression with SI after stopping medication, which pt states made her more anxious. Pt reports difficulty sleeping, increased appetite and weight gain, frequent SI. PsycheDx: Unspecified bipolar, SI. MedicalHx: Spinal fusion surgery, ringing in the ears, abnormal ECG, daily smoker. Pt reports altered balance r-t reduced mobility after spinal surgery, mechanical falls while squatting but not with regular activity. Pt states focusing on her daughters prevents her from acting on SI. Legal status: CV, signed 3-day.
[2022-05-14 23:04] VITALS: BP 100/51; PULSE 83; TEMP 36.6; O2SAT 99
[2022-05-15] MEDS: Levothyroxine Sodium 100 MCG TABLET PO (06:26)
[2022-05-15 07:00] VITALS: BMI 25.0
[2022-05-15] MEDS: Cholecalciferol (Vitamin D3) 25 MCG TABLET 50 MCG PO (08:37)
[2022-05-15 08:46] LABS: Estimated Average Glucose 94 mg/dL; Hemoglobin A1c % 4.9 %
[2022-05-15 09:12] LABS: Alanine Aminotransferase 55 U/L (0-31); Albumin Level 4.2 g/dL (3.5-5.0); Alkaline Phosphatase 71 U/L (39-117); Anion Gap 12 (12-20); Aspartate Amino Transferase 48 U/L (5-31); Bilirubin Direct < 0.2 mg/dL (0.0-0.5); Bilirubin Total < 0.2 mg/dL (0.0-1.0); Blood Urea Nitrogen 18 mg/dL (9-16); Calcium 9.4 mg/dL (8.4-10.2); Carbon Dioxide 24 mmol/L (22-29); Chloride 106 mmol/L (96-108); Cholesterol 166 mg/dL; Creatinine Clr Calc Pharmacy 65.7; Estimated Glomerular Filt Rate > 60; Glucose Fasting 106 mg/dL (60-99); HDL Cholesterol 52 mg/dL; LDL Cholesterol Calculated 95 mg/dl; Potassium 4.1 mmol/L (3.3-5.1); Sodium 138 mmol/L (135-145); Total Protein 7.2 g/dL (6.5-8.0); Triglycerides 98 mg/dL
[2022-05-15 09:28] LABS: Free T4 (Free Thyroxine) 0.84 ng/dL (0.71-1.85)
[2022-05-15 09:56] VITALS: BP 118/69; PULSE 87; RESP 20; TEMP 36.4; O2SAT 98
[2022-05-15 10:27] LABS: Folate 6.8 ng/mL (> or = 4.0); Vitamin B12 496 pg/mL (200-900)
[2022-05-15] MEDS: Nicotine 21 MG PATCH.TD24 TRANSDERMA (11:07)
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
[2022-05-15] MEDS: clonazePAM 1 MG TABLET PO ×2 (15:33→23:31)
[2022-05-15] MEDS: DULoxetine HCl 30 MG CAPSULE.DR PO (15:33)
[2022-05-15] MEDS: Nitrofurantoin Monohyd/M-Cryst 100 MG CAPSULE PO (15:33)
[2022-05-15 20:48] VITALS: BP 100/58; PULSE 70; RESP 18; TEMP 36.4; O2SAT 96
[2022-05-15] MEDS: Lithium Carbonate ER 300 MG TABLET.ER 600 MG PO (21:47)
[2022-05-15] MEDS: Omeprazole 20 MG CAPSULE.DR PO (23:45)
[2022-05-16 08:40] VITALS: BP 132/70; PULSE 83; RESP 20; TEMP 36.4; O2SAT 100
[2022-05-16] MEDS: clonazePAM 1 MG TABLET PO ×3 (08:48→23:54)
[2022-05-16] MEDS: Nitrofurantoin Monohyd/M-Cryst 100 MG CAPSULE PO ×2 (08:48→22:35)
[2022-05-16] MEDS: DULoxetine HCl 30 MG CAPSULE.DR PO (08:48)
[2022-05-16] MEDS: Cholecalciferol (Vitamin D3) 25 MCG TABLET 50 MCG PO (08:49)
[2022-05-16] MEDS: Levothyroxine Sodium 100 MCG TABLET PO (08:49)
[2022-05-16] MEDS: Nicotine 21 MG PATCH.TD24 TRANSDERMA (08:52)
[2022-05-16] MEDS: Omeprazole 40 MG CAPSULE.DR PO (13:14)
--- NOTE | 2022-05-16 14:10 | P.PNPSI_ITS ---
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 states she is feeling much better than yesterday, anxiety is dramatically improved, slept well last night for the first time in several weeks, slept a lot yesterday. wants to continue on current meds and then discharge back to outpt care thursday. interested in PHP. SW theobold aware. per staff, poor sleep two nights ago. LFTs trending up. Mental Status Exam Mental Status Exam Narrative: Appearance: casually groomed, fair hygiene in NAD Behavior:cooperative psychomotor: no agitation or retardation noted Speech:clear, normal rate/rhythm/volume, spontaneous Thought process:linear Thought content:no signs of psychosis, feeling better Mood: better Affect: congruent, brighter SI:none expressed HI:none expressed VH/AH:none expressed Insight/judgment:fair x 2. Memory/cog: alert, oriented x 3. grossly intact to conversational testing but not formally tested. Diagnostics Vital Signs (24Hr): Vital Signs - 24 hr 05/15/22 20:48 05/16/22 08:40 Temperature 97.6 F 97.6 F Pulse Rate 70 83 Respiratory Rate 18 20 Blood Pressure 100/58 L 132/70 Pulse Oximetry 96 100 Oxygen Delivery Method Room Air Room Air BMI result Body Mass Index 25.0 Labs Results: 05/13/22 22:21 05/15/22 08:19 Labs: Laboratory Results - last 48 hr 05/15/22 05/15/22 05/15/22 08:19 08:19 08:19 Sodium 138 Potassium 4.1 Chloride 106 Carbon Dioxide 24 Anion Gap 12 BUN 18 H Creatinine 0.80 Estim Creat Clear Calc 65.7 Estimated GFR > 60 Fasting Glucose 106 H Estimat Average Glucose 94 Hemoglobin A1c % 4.9 Calcium 9.4 D Total Bilirubin < 0.2 Direct Bilirubin < 0.2 AST 48 H D ALT 55 H Alkaline Phosphatase 71 Total Protein 7.2 Albumin 4.2 Triglycerides 98 Cholesterol 166 LDL Cholesterol, Calc 95 HDL Cholesterol 52 D Vitamin B12 496 Folate 6.8 TSH 12.00 H Free T4 0.84 Medications Medications Current Medications Acetaminophen (Acetaminophen 325 Mg Tablet) 650 mg PO Q6H PRN PRN Reason: Headache/Pain Mild Scale (1-3) Al Hydroxide/Mg Hydroxide (Magnesium Hydrox/Alum Hydrox 30 Ml Oral.Susp) 30 ml PO Q6H PRN PRN Reason: Heartburn/Nausea Clonazepam (Clonazepam 1 Mg Tablet) 1 mg PO BID [facility] Last Admin: 05/16/22 08:48 Dose: 1 mg Duloxetine HCl (Duloxetine Hcl 30 Mg Capsule.Dr) 30 mg PO DAILY [facility] Last Admin: 05/16/22 08:48 Dose: 30 mg Hydroxyzine HCl (Hydroxyzine Hcl 25 Mg Tablet) 25 mg PO Q6H PRN PRN Reason: Anxiety Levothyroxine Sodium (Levothyroxine Sodium 100 Mcg Tablet) 100 mcg PO DAILY@0600 [facility] Last Admin: 05/16/22 08:49 Dose: 100 mcg Arapahoe Carbonate (A[place]oe Carbonate Er 300 Mg Tablet.Er) 600 mg PO BEDTIME [facility] Last Admin: 05/15/22 21:47 Dose: 600 mg Magnesium Hydroxide (Milk Of Magnesia 30 Ml Oral.Susp) 30 ml PO DAILY PRN PRN Reason: Constipation Nicotine (Nicotine 21 Mg Patch.Td24) 21 mg TRANSDERMA DAILY [facility] Last Admin: 05/16/22 08:52 Dose: 21 mg Nitrofurantoin Macrocrystals (Nitrofurantoin Monohyd/M-Cryst 100 Mg Capsule) 100 mg PO Q12H [facility] Last Admin: 05/16/22 08:48 Dose: 100 mg Omeprazole (Omeprazole 40 Mg Capsule.Dr) 40 mg PO DAILY@1200 [facility] Last Admin: 05/16/22 13:14 Dose: 40 mg Trazodone HCl (Trazodone Hcl 50 Mg Tablet) 50 mg PO BEDTIME PRN PRN Reason: Insomnia Vitamin D (Cholecalciferol (Vitamin D3) 25 Mcg Tablet) 50 mcg PO DAILY [facility] Last Admin: 05/16/22 08:49 Dose: 50 mcg Allergies Allergies Allergy/AdvReac Type Severity Reaction Status Date / Time meperidine [From Demerol] Allergy Intermediate Itching Verified 05/13/22 18:22 NSAIDS (Non-Steroidal Allergy Intermediate GI UPSET/ Verified 05/13/22 18:22 Anti-Inflamma COFFEE [NSAIDS (NON-STEROIDAL GROUND ANTI-INFLAMMA] EMESIS Sulfa (Sulfonamide Allergy Intermediate SWELLING Verified 05/13/22 18:22 Antibiotics) OF FACE [SULFA (SULFONAMIDE HANDS, AND ANTIBIOTICS)] FEET Assessment & Plan Assessment & Plan (1) Depression: Status: Acute Code(s): F32.A - Depression, unspecified (2) Anxiety: Status: Acute Code(s): F41.9 - Anxiety disorder, unspecified Plan restart prior psych regimen. cymbalta 30 (titrate to 60 after discharge) lithium 600 QHS klonopin 1 BID. stabilize, discharge to outpt providers thursday. I spent ___25___ minutes with the patient and/or on the patient floor today, greater than?50% of which was spent counseling/coordinating care. Reason for contiued inpatient stay Substantial Risk for: inability to function and rapid decompensation
[2022-05-16 22:00] VITALS: BP 103/61; PULSE 76; TEMP 36.3; O2SAT 97
[2022-05-16] MEDS: Lithium Carbonate ER 300 MG TABLET.ER 600 MG PO (22:35)
[2022-05-17] MEDS: Levothyroxine Sodium 100 MCG TABLET PO (05:55)
[2022-05-17] MEDS: Cholecalciferol (Vitamin D3) 25 MCG TABLET 50 MCG PO (08:00)
[2022-05-17] MEDS: clonazePAM 1 MG TABLET PO ×2 (08:00→23:37)
[2022-05-17] MEDS: Nitrofurantoin Monohyd/M-Cryst 100 MG CAPSULE PO ×2 (08:00→22:41)
[2022-05-17] MEDS: DULoxetine HCl 30 MG CAPSULE.DR PO (08:01)
[2022-05-17] MEDS: Nicotine 21 MG PATCH.TD24 TRANSDERMA (08:01)
[2022-05-17 09:00] VITALS: BP 125/67; PULSE 90; RESP 16; TEMP 36.1; O2SAT 97
[2022-05-17] MEDS: Omeprazole 40 MG CAPSULE.DR PO (12:49)
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
[2022-05-17 22:37] VITALS: BP 106/66; PULSE 84; TEMP 36.6; O2SAT 99
[2022-05-17] MEDS: Lithium Carbonate ER 300 MG TABLET.ER 600 MG PO (23:36)
[2022-05-18] MEDS: Levothyroxine Sodium 100 MCG TABLET PO (05:32)
[2022-05-18 09:45] VITALS: BP 105/71; PULSE 100; RESP 18; TEMP 36.1; O2SAT 99
[2022-05-18] MEDS: Nicotine 21 MG PATCH.TD24 TRANSDERMA (09:49)
[2022-05-18] MEDS: clonazePAM 1 MG TABLET PO ×3 (09:50→23:17)
[2022-05-18] MEDS: Nitrofurantoin Monohyd/M-Cryst 100 MG CAPSULE PO ×2 (09:50→21:28)
[2022-05-18] MEDS: Cholecalciferol (Vitamin D3) 25 MCG TABLET 50 MCG PO (09:50)
[2022-05-18] MEDS: DULoxetine HCl 30 MG CAPSULE.DR PO (09:50)
--- NOTE | 2022-05-18 13:00 | P.PNPSI_ITS ---
Subjective Subjective Date of Service: 05/18/22 Reason For Visit: SI Subjective Notes: Conditional Voluntary Interim History: The nursing staff reported that the patient was very trigger by the loud behavior of a peer. She slept well last night no evidence of depression she is doing well. Isolated in her room most of the time. On interview the patient denies new symptoms Mental Status Exam Mental Status Exam Patient Appearance: Appropriate Patient Orientation: Person, Place and Situation Level of Consciousness: Awake Patient Behavior: Cooperative Mood Description: Withdrawn Affect Description: Constricted Patient Cognition Impaired: No Ability to Follow Directions: Good Speech Pattern: Clear Hallucinations: None Delusions: Not Present Thought Process: Distracted Thought Content: positive for [place] and positive for Circumstantial Judgement: Fair Diagnostics Vital Signs (24Hr): Vital Signs - 24 hr 05/17/22 22:37 05/18/22 09:45 Temperature 97.9 F 97.0 F Pulse Rate 84 100 Respiratory Rate 18 Blood Pressure 106/66 105/71 Pulse Oximetry 99 99 Oxygen Delivery Method Room Air Room Air BMI result Body Mass Index 25.0 Labs Results: 05/13/22 22:21 05/15/22 08:19 Medications Medications Current Medications Acetaminophen (Acetaminophen 325 Mg Tablet) 650 mg PO Q6H PRN PRN Reason: Headache/Pain Mild Scale (1-3) Al Hydroxide/Mg Hydroxide (Magnesium Hydrox/Alum Hydrox 30 Ml Oral.Susp) 30 ml PO Q6H PRN PRN Reason: Heartburn/Nausea Clonazepam (Clonazepam 1 Mg Tablet) 1 mg PO BID [facility] Last Admin: 05/18/22 09:50 Dose: 1 mg Duloxetine HCl (Duloxetine Hcl 30 Mg Capsule.Dr) 30 mg PO DAILY [facility] Last Admin: 05/18/22 09:50 Dose: 30 mg Hydroxyzine HCl (Hydroxyzine Hcl 25 Mg Tablet) 25 mg PO Q6H PRN PRN Reason: Anxiety Levothyroxine Sodium (Levothyroxine Sodium 100 Mcg Tablet) 100 mcg PO DAILY@0600 [facility] Last Admin: 05/18/22 05:32 Dose: 100 mcg [place] Carbonate ([place] Carbonate Er 300 Mg Tablet.Er) 600 mg PO BEDTIME [facility] Last Admin: 05/17/22 23:36 Dose: 600 mg Magnesium Hydroxide (Milk Of Magnesia 30 Ml Oral.Susp) 30 ml PO DAILY PRN PRN Reason: Constipation Nicotine (Nicotine 21 Mg Patch.Td24) 21 mg TRANSDERMA DAILY [facility] Last Admin: 05/18/22 09:49 Dose: 21 mg Nitrofurantoin Macrocrystals (Nitrofurantoin Monohyd/M-Cryst 100 Mg Capsule) 100 mg PO Q12H [facility] Last Admin: 05/18/22 09:50 Dose: 100 mg Omeprazole (Omeprazole 40 Mg Capsule.Dr) 40 mg PO DAILY@1200 [facility] Last Admin: 05/17/22 12:49 Dose: 40 mg Trazodone HCl (Trazodone Hcl 50 Mg Tablet) 50 mg PO BEDTIME PRN PRN Reason: Insomnia Vitamin D (Cholecalciferol (Vitamin D3) 25 Mcg Tablet) 50 mcg PO DAILY [facility] Last Admin: 05/18/22 09:50 Dose: 50 mcg Allergies Allergies Allergy/AdvReac Type Severity Reaction Status Date / Time meperidine [From Demerol] Allergy Intermediate Itching Verified 05/13/22 18:22 NSAIDS (Non-Steroidal Allergy Intermediate GI UPSET/ Verified 05/13/22 18:22 Anti-Inflamma COFFEE [NSAIDS (NON-STEROIDAL GROUND ANTI-INFLAMMA] EMESIS Sulfa (Sulfonamide Allergy Intermediate SWELLING Verified 05/13/22 18:22 Antibiotics) OF FACE [SULFA (SULFONAMIDE HANDS, AND ANTIBIOTICS)] FEET Assessment & Plan Assessment & Plan (1) Depression: Status: Acute Code(s): F32.A - Depression, unspecified (2) Anxiety: Status: Acute Code(s): F41.9 - Anxiety disorder, unspecified Plan restart prior psych regimen. cymbalta 30 (titrate to 60 after discharge) lithium 600 QHS klonopin 1 BID. stabilize, discharge to outpt providers thursday. I spent __20____ minutes with the patient and/or on the patient floor today, greater than?50% of which was spent counseling/coordinating care. Reason for contiued inpatient stay Substantial Risk for: inability to function, rapid decompensation and med/psych decompensation
[2022-05-18] MEDS: Omeprazole 40 MG CAPSULE.DR PO (13:01)
[2022-05-18 21:00] VITALS: BP 117/83; PULSE 96; RESP 16; TEMP 36.2; O2SAT 98
[2022-05-18] MEDS: Lithium Carbonate ER 300 MG TABLET.ER 600 MG PO (21:28)
[2022-05-19] MEDS: Levothyroxine Sodium 100 MCG TABLET PO (06:44)
[2022-05-19] MEDS: DULoxetine HCl 30 MG CAPSULE.DR PO (08:41)
[2022-05-19] MEDS: Cholecalciferol (Vitamin D3) 25 MCG TABLET 50 MCG PO (08:41)
[2022-05-19] MEDS: clonazePAM 1 MG TABLET PO (08:42)
[2022-05-19] MEDS: Nicotine 21 MG PATCH.TD24 TRANSDERMA (08:43)
[2022-05-19 10:38] VITALS: BP 116/73; PULSE 75; RESP 18; TEMP 36.3; O2SAT 100
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
--- NOTE | 2022-05-19 11:26 | PC.NURSE ---
Patient reports she is ready and anxious for discharge. She denies SI/HI, denies AH/VH. Reviewed discharge instructions/belongings with patient. Patient reports all belongings are accounted for and verbalizes understanding of instructions. No concerns reported.
== END 2022-05-19 11:05 | disposition home or self-care (01) | DRG 881 ==
LOC: HO.ED 05-14 02:29 → HO.PADLT16 05-14 15:54
PROVIDERS: Admitting Provider Psychiatry & Neurology Psychiatry; Emergency Provider Emergency Medicine Emergency Medical Services; PCP Family Medicine; Visit Provider Psychiatry & Neurology Psychiatry
DX: F32.A Depression, unspecified (principal); R45.851 Suicidal ideations; F90.9 Attention-deficit hyperactivity disorder, unspecified type; E03.9 Hypothyroidism, unspecified; G47.00 Insomnia, unspecified; F41.9 Anxiety disorder, unspecified; Z98.1 Arthrodesis status; Z20.822 Contact with and (suspected) exposure to COVID-19; F17.210 Nicotine dependence, cigarettes, uncomplicated; Z71.6 Tobacco abuse counseling; Z88.2 Allergy status to sulfonamides; Z88.6 Allergy status to analgesic agent; Z88.8 Allergy status to other drugs, medicaments and biological substances; Z79.899 Other long term (current) drug therapy
CPT/HCPCS: 36415; 80053; 80061; 80076; 80143; 80179; 80307; 81001; 82077; 82607; 82746; 83036; 84439; 84443; 85025; 87635; 93005; 99285